=== PATIENT | female | born 1985 | race American Indian/Alaskan Native ===

== ENCOUNTER 2019-06-05 11:51 | Emergency (ER) | payer SELFPAY ==
[2019-06-05 12:59] VITALS: BP 141/98
--- NOTE | 2019-06-05 12:59 | Event Note ---
ED Screening Note Date of service: 06/05/19 Time: 12:56 ED Screening Note: 34 y/o female comes in for a 4 day history of diarrhea. And having epigastric pain times 3 day. having left leg pain that radiates down her leg for 2 weeks. Has taken IB. This initial assessment/diagnostic orders/clinical plan/treatment(s) is/are subject to change based on patients health status, clinical progression and re- assessment by fellow clinical providers in the ED. Further treatment and workup at subsequent clinical providers discretion. Patient/guardian urged not to elope from the ED as their condition may be serious if not clinically assessed and managed. Initial orders include:
[2019-06-05 13:35] LABS: Basophils % (Auto) 0.6 % (0.0-1.8); Eosinophils # (Auto) 0.3 K/mm3 (0.0-0.4); Eosinophils % (Auto) 4.9 % (0.0-4.3); Hematocrit 43.1 % (30.3-42.9); Hemoglobin 14.5 gm/dl (10.1-14.3); Lymphocytes # (Auto) 1.4 K/mm3 (1.2-5.4); Lymphocytes % (Auto) 22.9 % (13.4-35.0); Mean Corpuscular HGB Conc 34 % (30-34); Mean Corpuscular Volume 96 fl (79-97); Monocytes # (Auto) 0.4 K/mm3 (0.0-0.8); Monocytes % (Auto) 6.7 % (0.0-7.3); Platelet Count 164 K/mm3 (140-440); Red Blood Count 4.52 M/mm3 (3.65-5.03)
[2019-06-05 13:55] LABS: Alanine Aminotransferase 29 units/L (7-56); Albumin 4.1 g/dL (3.9-5); BUN/Creatinine Ratio 10; Blood Urea Nitrogen 4 mg/dL (7-17); Calcium 9.3 mg/dL (8.4-10.2); Hemolysis Index 13
[2019-06-05 14:41] LABS: Bilirubin,Urine NEG (Negative); Blood,Urine NEG (Negative); Color,Urine Yellow (Yellow); Mucus,Urine FEW /HPF; Protein,Urine <15 mg/dL mg/dL (Negative); Urobilinogen,Urine < 2.0 mg/dL (<2.0); WBC,Urine < 1.0 /HPF (0.0-6.0)
--- NOTE | 2019-06-05 14:50 | Emergency Department Report ---
ED Abdominal Pain HPI - General Chief Complaint: Abdominal Pain Stated Complaint: STOMACH/(L) LEG PAIN/DIARRHEA Time Seen by Provider: 06/05/19 12:55 Source: patient, family Mode of arrival: Ambulatory Limitations: No Limitations - History of Present Illness Initial Comments: Patient complaining of abdominal pain with diarrhea 3 days. She reports that she ate Duplia and then she started getting sick. She denies any fever or chills. Reports some nausea without any vomiting. Pain is 8/10 and cramping located to upper abdominal quadrants. Denies any urinary burning, frequency or urgency. Denies any back pain. Pain is constant and no medication taken prior to coming to the hospital. She reported that she has a history of gall stones but she does have a history of her gallstone being infected. She also reported that she has been a drinker since she has been H 13 and she started drinking heavily in her 20s. She says she just stopped drinking 2-1/2 weeks ago. Denies any history of liver disease. She is also complaining of left lower extremity pain for weeks. Pain is located at the back of her thigh going down the back of her leg and it comes and goes. MD Complaint: abdominal pain, other (diarrhea) Onset/Timin -: days(s) Location: LUQ, RUQ Radiation: none Migration to: no migration Severity: severe Severity scale (0 -10): 8 Quality: cramping Consistency: constant Improves With: nothing Worsens With: eating Context: other (unknown) Associated Symptoms: nausea, diarrhea. denies: vomiting, fever, chills, constipation, dysuria, hematemesis, hematochezia, melena, hematuria, anorexia, syncope Treatments Prior to Arrival: other (none) - Related Data LMP Date: 05/31/19 Previous Rx's Medication Instructions Recorded Last Taken Type Acetaminophen/Codeine [Tylenol 1 tab PO Q6H PRN #12 tab 06/05/19 Unknown Rx /Codeine # 3 tab] Ondansetron [Zofran ODT TAB] 8 mg PO Q8HR PRN #12 tab.rapdis 06/05/19 Unknown Rx Allergies Allergy/AdvReac Type Severity Reaction Status Date / Time No Known Allergies Allergy Unverified 06/05/19 11:53 ED Review of Systems ROS: Stated complaint: STOMACH/(L) LEG PAIN/DIARRHEA Other details as noted in HPI Constitutional: denies: chills, fever ENT: denies: throat pain, congestion Respiratory: denies: cough, shortness of breath, SOB with exertion, wheezing Cardiovascular: denies: chest pain, palpitations, dyspnea on exertion, edema, syncope Gastrointestinal: abdominal pain, nausea, diarrhea. denies: vomiting, constipation, hematemesis, melena, hematochezia Genitourinary: denies: urgency, dysuria, frequency, hematuria, discharge, abnormal menses, dyspareunia Musculoskeletal: arthralgia. denies: back pain, joint swelling, myalgia Skin: denies: rash Neurological: denies: headache, weakness, numbness, paresthesias, confusion, abnormal gait, vertigo ED Past Medical Hx - Past Medical History Previous Medical History?: Yes Hx Hypertension: Yes Hx Asthma: Yes Additional medical history: Gallstones - Surgical History Past Surgical History?: Yes Additional Surgical History: - Family History Family history: hypertension - Social History Smoking Status: Current Every Day Smoker Substance Use Type: Alcohol (she reports that she quit 2-1/2 weeks ago) - Medications Home Medications: Home Medications Medication Instructions Recorded Confirmed Last Taken Type Acetaminophen/Codeine [Tylenol 1 tab PO Q6H PRN #12 tab 06/05/19 Unknown Rx /Codeine # 3 tab] Ondansetron [Zofran ODT TAB] 8 mg PO Q8HR PRN #12 tab.rapdis 06/05/19 Unknown Rx ED Physical Exam - General Limitations: No Limitations General appearance: alert, in no apparent distress - Head Head exam: Present: atraumatic, normocephalic, normal inspection - Eye Eye exam: Present: normal appearance, PERRL, EOMI Pupils: Present: normal accommodation - ENT ENT exam: Present: normal exam, normal orophraynx, mucous membranes moist - Neck Neck exam: Present: normal inspection, full ROM. Absent: tenderness, lympha denopathy - Respiratory Respiratory exam: Present: normal lung sounds bilaterally. Absent: respiratory distress, chest wall tenderness - Cardiovascular Cardiovascular Exam: Present: regular rate, normal rhythm, normal heart sounds - GI/Abdominal GI/Abdominal exam: Present: soft, tenderness (right upper quadrant and mid upper quadrant), normal bowel sounds. Absent: distended, guarding, rebound, rigid, organomegaly, mass, bruit, pulsatile mass, hernia - Expanded GI/Abdominal Exam Expanded GI/Abdominal exam: Absent: Monzon's sign, ascites - Extremities Exam Extremities exam: Present: normal inspection, full ROM, normal capillary refill, other (no clubbing, cyanosis or edema. +2 pulses in all extremities. No neurovascular compromise except she reported pain with palpation to the back of her thigh.). Absent: tenderness, pedal edema, joint swelling, calf tenderness - Back Exam Back exam: Present: normal inspection, full ROM, other (ambulates without any difficulties). Absent: tenderness, CVA tenderness (R), CVA tenderness (L), muscle spasm, paraspinal tenderness, vertebral tenderness, rash noted - Neurological Exam Neurological exam: Present: alert, oriented X3, normal gait - Psychiatric Psychiatric exam: Present: normal affect, normal mood - Skin Skin exam: Present: warm, dry, intact, normal color. Absent: rash ED Course Vital Signs 06/05/19 12:56 Temperature 98.5 F Pulse Rate 79 Respiratory 18 Rate Blood Pressure 141/98 O2 Sat by Pulse 100 Oximetry - Reevaluation(s) Reevaluation #1: 06/05/19 16:23 She received morphine 4 mg IV, 1 L of normal saline and Zofran 8 mg IV with positive relief of pain. She is able to tolerate some oral fluids. Patient is ambulated in and in no acute distress. Reevaluation #2: 06/05/19 18:36 She remained stable in no acute distress. She is pain-free at present ED Medical Decision Making - Lab Data Result diagrams: 06/05/19 13:17 06/05/19 13:17 Lab Results 06/05/19 06/05/19 06/05/19 Range/Units 13:17 13:17 14:31 WBC 6.1 (4.5-11.0) K/mm3 RBC 4.52 (3.65-5.03) M/mm3 Hgb 14.5 H (10.1-14.3) gm/dl Hct 43.1 H (30.3-42.9) % MCV 96 (79-97) fl MCH 32 (28-32) pg MCHC 34 (30-34) % RDW 14.0 (13.2-15.2) % Plt Count 164 (140-440) K/mm3 Lymph % (Auto) 22.9 (13.4-35.0) % Gates % (Auto) 6.7 (0.0-7.3) % Eos % (Auto) 4.9 H (0.0-4.3) % Baso % (Auto) 0.6 (0.0-1.8) % Lymph # 1.4 (1.2-5.4) K/mm3 Gates # 0.4 (0.0-0.8) K/mm3 Eos # 0.3 (0.0-0.4) K/mm3 Baso # 0.0 (0.0-0.1) K/mm3 Seg Neutrophils % 64.9 (40.0-70.0) % Seg Neutrophils # 4.0 (1.8-7.7) K/mm3 Sodium 141 (137-145) mmol/L Potassium 4.6 (3.6-5.0) mmol/L Chloride 104.2 (98-107) mmol/L Carbon Dioxide 25 (22-30) mmol/L Anion Gap 16 mmol/L BUN 4 L (7-17) mg/dL Creatinine 0.4 L (0.7-1.2) mg/dL Estimated GFR > 60 ml/min BUN/Creatinine Ratio 10 % Glucose 94 (65-100) mg/dL Calcium 9.3 (8.4-10.2) mg/dL Total Bilirubin 0.20 (0.1-1.2) mg/dL AST 20 (5-40) units/L ALT 29 (7-56) units/L Alkaline Phosphatase 55 (35-129) units/L Total Protein 7.2 (6.3-8.2) g/dL Albumin 4.1 (3.9-5) g/dL Albumin/Globulin Ratio 1.3 % Lipase 115 H (13-60) units/L Urine Color Yellow (Yellow) Urine Turbidity Clear (Clear) Urine pH 5.0 (5.0-7.0) Ur Specific [place] 1.016 (1.003-1.030) Urine Protein <15 mg/dl (Negative) mg/dL Urine Glucose (UA) Neg (Negative) mg/dL Urine Ketones Neg (Negative) mg/dL Urine Blood Neg (Negative) Urine Nitrite Neg (Negative) Urine Bilirubin Neg (Negative) Urine Urobilinogen < 2.0 (<2.0) mg/dL Ur Leukocyte Esterase Neg (Negative) Urine WBC (Auto) < 1.0 (0.0-6.0) /HPF Urine RBC (Auto) 1.0 (0.0-6.0) /HPF U Epithel Cells (Auto) 2.0 (0-13.0) /HPF Urine Mucus Few /HPF Urine HCG, Qual Negative (Negative) - Radiology Data Radiology results: report reviewed Venous Doppler left lower extremity and abdominal ultrasound upper dictated by radiologist's report reviewed by myself. Findings [address] [address] Vascular Lab Report Signed Patient: SWETA GARCIA MR#: [id number] : 1985 Acct:[id number] Age/Sex: 34 / F ADM Date: 06/05/19 Loc: ED Attending Dr: Ordering Physician: LONNY CRISOSTOMO Date of Service: 06/05/19 Procedure(s): VL venous duplex LE Accession Number(s): [id number] cc: LONNY CRISOSTOMO DUPLEX DOPPLER LOWER EXTREMITY VEINS, LEFT INDICATION: lower extremity pain without any trauma. TECHNIQUE: Duplex doppler imaging was performed through the veins of the left lower extremity using venous compression and other maneuvers. COMPARISON: None available. FINDINGS: Common Femoral vein: Negative. Superficial Femoral vein: Negative. Popliteal vein: Negative. Calf veins: Negative. Additional findings: None. IMPRESSION: 1. No sonographic evidence for DVT in the left lower extremity. Signer Name: Rudy Blum MD Signed: 06/05/2019 3:58 PM Workstation Name: [id number] Transcribed By: WG Dictated By: Rudy Blum MD Electronically Authenticated By: Rudy Blum MD Signed Date/Time: 06/05/19 155 DD/ 155 TD/TT: Findings [address] [address] Ultrasound Report Signed Patient: SWETA GARCIA MR#: [id number] : 1985 Acct:[id number] Age/Sex: 34 / F ADM Date: 06/05/19 Loc: ED Attending Dr: Ordering Physician: LONNY CRISOSTOMO Date of Service: 06/05/19 Procedure(s): US abdomen limited Accession Number(s): [id number] cc: LONNY CRISOSTOMO US abdomen limited INDICATION / CLINICAL INFORMATION: abdominal pain. COMPARISON: None available. FINDINGS: A single 9 mm stone is demonstrated near the gallbladder fundus. Gallbladder wall appears slightly edematous but measures only 2 mm in thickness. Common duct is normal in size. Liver, spleen, pancreas and kidneys are negative. IMPRESSION: 1. Cholelithiasis. Appearance of the gallbladder wall is suggestive of chronic cholecystitis. Signer Name: Avelino Soto MD Signed: 06/05/2019 3:48 PM Workstation Name: [id number] Transcribed By: TM Dictated By: Avelino Soto MD Electronically Authenticated By: Avelino Soto MD Signed Date/Time: 06/05/19 1548 DD/DT: - Medical Decision Making This is a 34-year-old female here for upper quadrant pain for 3 days after eating Duplia. She has a history of gallstones without any gallbladder infection in the past. Abdominal exam with tenderness to right upper and mid quadrant with negative Monzon sign. Patient is stable and not having any pain at present. CBC stable, lipase 1:15 which is elevated, urinalysis is negative for negative tests. I discussed this case with Dr. Brody Brownlee and she reports the patient can be discharged home to follow-up with primary care and surgeon. She is educated on lab report and ultrasound report. Doppler ultrasound of lower extremity negative and abdominal ultrasound upper quadrant with findings for gallstone Patient given pain medication, IV fluid and nausea medication in emergency room and her vital signs are stable she is afebrile and discharged home in stable condition and voices understanding the discharge injection, diagnosis and medication. Discharged home with her family in stable condition with prescription for Tylenol No. 3, Zofran. He is aware that she needs to stay away from fatty food and avoid alcohol and its if her condition worsens she needs to return to the emergency room FISH. - Differential Diagnosis gallbladder/spleen disease, liver disease, gastroenteritis, UTI Critical care attestation.: If time is entered above; I have spent that time in minutes in the direct care of this critically ill patient, excluding procedure time. ED Disposition Clinical Impression: Gall stones, Biliary colic symptom, Elevated lipase, Pain in left lower leg Abdominal pain Qualifiers: Abdominal location: right upper quadrant Qualified Code(s): R10.11 - Right upper quadrant pain Disposition: - TO HOME OR SELFCARE Is pt being admited?: No Does the pt Need Aspirin: No Condition: Stable Instructions: Abdominal Pain (ED), Biliary Colic (ED), Cholecystitis (ED), Acute Nausea and Vomiting (ED), Acute Diarrhea (ED), Arthralgia (ED) Additional Instructions: Please follow up with primary care physician and if he do not have a primary care physician [facility]-up at [facility] in 2-3 days Follow-up with doctor, who is general surgeon regarding gallbladder in 2-3 days Take medication as prescribed I will avoid fatty foods and ensure that he drink plenty of water Take Tylenol 3 for pain but please do not drive or operate heavy machinery while taking this medication as it causes drowsiness If your pain worsens, increased nausea vomiting or diarrhea, fever and/or chills, weakness, dizziness, increased heart rate, please return to emergency room FISH Referrals: SEEMA COLE MD [Primary Care Provider] - 2-3 Days JOVANY XIAO MD [Staff Physician] - 06/07/19 Forms: Work/School Release Form(ED), Accompanied Note
[2019-06-05] MEDS ORDERED: ZOFRAN IV ONE (14:53)
[2019-06-05] MEDS ORDERED: MORPHINE IV ONE (14:53)
[2019-06-05] MEDS ORDERED: NACL 0.9% 1000 ML 1,000 ML IV ONE (14:53)
[2019-06-05 14:55] LABS: HCG Qualitative,Urine Negative (Negative)
--- NOTE | 2019-06-05 15:52 | Ultrasound Report ---
US abdomen limited INDICATION / CLINICAL INFORMATION: abdominal pain. COMPARISON: None available. FINDINGS: A single 9 mm stone is demonstrated near the gallbladder fundus. Gallbladder wall appears slightly ed ematous but measures only 2 mm in thickness. Common duct is normal in size. Liver, spleen, pancreas a nd kidneys are negative. IMPRESSION: 1. Cholelithiasis. Appearance of the gallbladder wall is suggestive of chronic cholecystitis. Signer Name: Avelino Soto MD Signed: 06/05/2019 3:48 PM Workstation Name: [id number]
--- NOTE | 2019-06-05 16:03 | Vascular Lab Report ---
DUPLEX DOPPLER LOWER EXTREMITY VEINS, LEFT INDICATION: lower extremity pain without any trauma. TECHNIQUE: Duplex doppler imaging was performed through the veins of the left lower extremity using venous compr ession and other maneuvers. COMPARISON: None available. FINDINGS: Common Femoral vein: Negative. Superficial Femoral vein: Negative. Popliteal vein: Negative. Calf veins: Negative. Additional findings: None. IMPRESSION: 1. No sonographic evidence for DVT in the left lower extremity. Signer Name: Rudy Blum MD Signed: 06/05/2019 3:58 PM Workstation Name: [email or web address]
== END 2019-06-05 18:50 | disposition home or self-care (01) ==
LOC: ED 11:51
DX: K80.80 Other cholelithiasis without obstruction (principal); I10 Essential (primary) hypertension; J45.909 Unspecified asthma, uncomplicated; F17.200 Nicotine dependence, unspecified, uncomplicated
CPT/HCPCS: 36415; 76705; 80053; 81001; 81025; 83690; 85025; 93971; 96361; 96374; 96375; 99284; J2270; J2405; J7030

== ENCOUNTER 2020-02-21 08:06 | Emergency (ER) | payer SELFPAY ==
[2020-02-21] MEDS ORDERED: methylPREDNISolone Sod Succinate 125 MG/2 ML INJ IM ONE (08:32)
[2020-02-21] MEDS ORDERED: traMADol 50 MG TAB PO ONE (08:32)
--- NOTE | 2020-02-21 08:34 | Emergency Department Report ---
ED General Adult HPI - General Chief complaint: Back Pain/Injury Stated complaint: LEG PAIN/BLOOD IN STOOL Time Seen by Provider: 02/21/20 08:21 Source: patient Mode of arrival: Ambulatory Limitations: No Limitations - History of Present Illness Initial comments: Patient presents to the emergency department the chief complaint left-sided back pain that started about 1 week ago that is radiating into her left leg. Patient states the pain is sharp in nature and feels like electrical impulses. She states within the last couple of days she is also having pain along the right side of her back is radiating into her right leg as well. Patient describes some numbness and tingling in the right leg as well. Patient denies any recent trauma or injury to her lower back. Patient states she does not remember any traumatic experience within the last 5 years as well. Patient states that she has had some bright blood in her stool recently but denies abdominal pain. Patient states she has full control of her bladder and bowel. Patient also denies paresthesias of the perineum - Related Data Previous Rx's Medication Instructions Recorded Last Taken Type Acetaminophen/Codeine [Tylenol 1 tab PO Q6H PRN #12 tab 06/05/19 Unknown Rx /Codeine # 3 tab] Ondansetron [Zofran ODT TAB] 8 mg PO Q8HR PRN #12 tab.rapdis 06/05/19 Unknown Rx Potassium Chloride 10 meq PO DAILY #5 tablet.er 02/21/20 Unknown Rx predniSONE [Deltasone] 20 mg PO DAILY #15 tablet 02/21/20 Unknown Rx traMADoL [Ultram] 50 mg PO Q6HR PRN #24 tablet 02/21/20 Unknown Rx Allergies Allergy/AdvReac Type Severity Reaction Status Date / Time No Known Allergies Allergy Verified 02/21/20 10:50 ED Review of Systems ROS: Stated complaint: LEG PAIN/BLOOD IN STOOL Other details as noted in HPI Comment: All other systems reviewed and negative Constitutional: denies: chills, fever Eyes: denies: eye pain, eye discharge, vision change ENT: denies: ear pain, throat pain Respiratory: denies: cough, shortness of breath, wheezing Cardiovascular: denies: chest pain, palpitations Endocrine: no symptoms reported Gastrointestinal: denies: abdominal pain, nausea, diarrhea Genitourinary: denies: urgency, dysuria, discharge Musculoskeletal: back pain. denies: joint swelling, arthralgia Skin: denies: rash, lesions Neurological: denies: headache, weakness, paresthesias Psychiatric: denies: anxiety, depression Hematological/Lymphatic: denies: easy bleeding, easy bruising ED Past Medical Hx - Past Medical History Previous Medical History?: Yes Hx Hypertension: Yes Hx Asthma: Yes Additional medical history: Gallstones - Surgical History Past Surgical History?: Yes Additional Surgical History: - Social History Smoking Status: Current Every Day Smoker Substance Use Type: Alcohol - Medications Home Medications: Home Medications Medication Instructions Recorded Confirmed Last Taken Type Acetaminophen/Codeine [Tylenol 1 tab PO Q6H PRN #12 tab 06/05/19 Unknown Rx /Codeine # 3 tab] Ondansetron [Zofran ODT TAB] 8 mg PO Q8HR PRN #12 tab.rapdis 06/05/19 Unknown Rx Potassium Chloride 10 meq PO DAILY #5 tablet.er 02/21/20 Unknown Rx predniSONE [Deltasone] 20 mg PO DAILY #15 tablet 02/21/20 Unknown Rx traMADoL [Ultram] 50 mg PO Q6HR PRN #24 tablet 02/21/20 Unknown Rx ED Physical Exam - General Limitations: No Limitations General appearance: alert, in no apparent distress - Head Head exam: Present: atraumatic, normocephalic - Eye Eye exam: Present: normal appearance, PERRL, EOMI - ENT ENT exam: Present: mucous membranes moist - Neck Neck exam: Present: normal inspection - Respiratory Respiratory exam: Present: normal lung sounds bilaterally. Absent: respiratory distress - Cardiovascular Cardiovascular Exam: Present: regular rate, normal rhythm. Absent: systolic murmur, diastolic murmur, rubs, gallop - GI/Abdominal GI/Abdominal exam: Present: soft, normal bowel sounds. Absent: distended, tenderness - Rectal Rectal exam: Present: deferred, other (patient politely declined ) - Extremities Exam Extremities exam: Present: normal inspection - Back Exam Back exam: Present: normal inspection - Neurological Exam Neurological exam: Present: alert, oriented X3, CN II-XII intact, other (Positive straight leg raise bilaterally). Absent: motor sensory deficit - Psychiatric Psychiatric exam: Present: normal affect, normal mood - Skin Skin exam: Present: warm, dry, intact, normal color. Absent: rash ED Course Vital Signs 02/21/20 02/21/20 02/21/20 08:10 08:48 08:49 Temperature 9.5 F L 98.1 F Pulse Rate 99 H 85 Respiratory 16 18 Rate Blood Pressure 129/95 133/98 O2 Sat by Pulse 98 99 Oximetry 02/21/20 02/21/20 09:00 10:00 Temperature Pulse Rate Respiratory Rate Blood Pressure 135/95 130/91 O2 Sat by Pulse Oximetry ED Medical Decision Making - Lab Data Result diagrams: 02/21/20 09:38 02/21/20 10:00 - Radiology Data Radiology results: report reviewed - Medical Decision Making Potassium replaced discussed CT results with patient discussed with patient the need to follow up with PCP/GI for blood in stool for further evaluation Critical care attestation.: If time is entered above; I have spent that time in minutes in the direct care of this critically ill patient, excluding procedure time. ED Disposition Clinical Impression: Hypokalemia, Lumbar radiculopathy, acute, Bulging disc, Rectal bleed Disposition: TO HOME OR SELFCARE Is pt being admited?: No Does the pt Need Aspirin: No Condition: Stable Instructions: Hypokalemia (ED), Lumbar Radiculopathy (ED), Rectal Bleeding (ED) Additional Instructions: return if worse Prescriptions: predniSONE [Deltasone] 20 mg PO DAILY #15 tablet Potassium Chloride 10 meq PO DAILY #5 tablet.er traMADoL [Ultram] 50 mg PO Q6HR PRN #24 tablet PRN Reason: Pain Referrals: [facility] MD RANULFO [Primary Care Provider] - 3-5 Days [facility] [Provider Group] - 3-5 Days [facility] [Provider Group] - 3-5 Days [facility] [Outside] - 3-5 Days [facility] [Provider Group] - 3-5 Days ANIL JONES MD [Staff Physician] - 3-5 Days [facility] [Provider Group] - 3-5 Days Time of Disposition: 12:09
[2020-02-21 09:42] LABS: Basophils # (Auto) 0.1 K/mm3 (0.0-0.1); Basophils % (Auto) 1.4 % (0.0-1.8); Eosinophils # (Auto) 0.1 K/mm3 (0.0-0.4); Eosinophils % (Auto) 2.1 % (0.0-4.3); Hematocrit 39.9 % (30.3-42.9); Hemoglobin 13.7 gm/dl (10.1-14.3); Lymphocytes # (Auto) 1.5 K/mm3 (1.2-5.4); Lymphocytes % (Auto) 31.6 % (13.4-35.0); Mean Corpuscular HGB Conc 34 % (30-34); Mean Corpuscular Volume 92 fl (79-97); Monocytes # (Auto) 0.7 K/mm3 (0.0-0.8); Platelet Count 214 K/mm3 (140-440); Red Blood Count 4.32 M/mm3 (3.65-5.03); Red Cell Distribution Width 16.2 % (13.2-15.2)
[2020-02-21 10:02] LABS: Alanine Aminotransferase 58 units/L (7-56); Albumin 3.6 g/dL (3.9-5); BUN/Creatinine Ratio 5; Blood Urea Nitrogen 2 mg/dL (7-17); Hemolysis Index 12
[2020-02-21 10:12] VITALS: BP 130/91
[2020-02-21 10:26] LABS: HCG Qualitative,Urine Negative (Negative)
[2020-02-21 10:30] LABS: Bacteria,Urine 1+ /HPF (Negative); Bilirubin,Urine NEG (Negative); Blood,Urine SM (Negative); Color,Urine Yellow (Yellow); Mucus,Urine FEW /HPF; Protein,Urine <15 mg/dL mg/dL (Negative); Urobilinogen,Urine < 2.0 mg/dL (<2.0)
[2020-02-21 10:36] LABS: Alanine Aminotransferase 62 units/L (7-56); BUN/Creatinine Ratio 5; Blood Urea Nitrogen 2 mg/dL (7-17); Calcium 8.2 mg/dL (8.4-10.2); Hemolysis Index 7
[2020-02-21] MEDS ORDERED: POTASSIUM CHLORIDE ER 20 MEQ TAB PO ONE (10:49)
[2020-02-21] MEDS ORDERED: MAGNESIUM SULFATE 1 GM in SODIUM CHLORIDE 0.9% 50 ML IV ONE (11:30)
--- NOTE | 2020-02-21 11:38 | Cat Scan Report ---
CT LUMBAR SPINE WITHOUT CONTRAST INDICATION: Bilateral lower extremity radiculopathy after fall. TECHNIQUE: Axial imaging performed through the lumbar spine without the use of contrast. Sagittal a nd coronal reconstructed images were also reviewed. All CT scans at this location are performed usin g CT dose reduction for ALARA by means of automated exposure control. COMPARISON: None FINDINGS: Alignment: Spinal alignment is normal. Bones: There is no acute osseous abnormality. No significant degenerative disc disease or facet art hropathy. Soft tissues: Although intraspinal contents can be obscured on CT, mild diffuse posterior bulging di scs are suspected at L4-5 and L5-S1. No high-grade central canal stenosis is suggested. IMPRESSION: No acute osseous injury or malalignment. Mild diffuse bulging discs are suspected at L4- 5 and L5-S1. If further evaluation is needed, MRI lumbar spine without contrast is recommended. Signer Name: Mt Duval Jr, MD Signed: 02/21/2020 11:33 AM Workstation Name: [id number]
== END 2020-02-21 12:54 | disposition home or self-care (01) ==
LOC: ED 08:06
DX: E87.6 Hypokalemia (principal); M54.16 Radiculopathy, lumbar region; M51.27 Other intervertebral disc displacement, lumbosacral region; K62.5 Hemorrhage of anus and rectum; I10 Essential (primary) hypertension; J45.909 Unspecified asthma, uncomplicated; K80.80 Other cholelithiasis without obstruction; F17.200 Nicotine dependence, unspecified, uncomplicated; Z98.890 Other specified postprocedural states; Z79.899 Other long term (current) drug therapy
CPT/HCPCS: 36415; 72131; 80053; 81001; 81025; 83735; 84703; 85025; 87086; 96365; 96372; 99284; J2930; J3475

== ENCOUNTER 2021-05-30 10:23 | Emergency (ER) | payer OTHER ==
[2021-05-30 10:48] VITALS: BP 119/89
[2021-05-30 11:32] LABS: Bacteria,Urine 1+ /HPF (Negative); Bilirubin,Urine MOD (Negative); Blood,Urine MOD (Negative); Color,Urine Amber (Yellow); Hyaline Casts,Urine 12 /LPF; Mucus,Urine 3+ /HPF
[2021-05-30 11:41] LABS: Protein,Urine >500 mg/dL (Negative)
[2021-05-30 11:42] LABS: HCG Qualitative,Urine Negative (Negative)
[2021-05-30 11:45] LABS: Ictotest,Urine Negative (Negative)
--- NOTE | 2021-05-30 12:57 | Emergency Department Report ---
ED General Adult HPI - General Chief complaint: Upper Respiratory Infection Stated complaint: SICK/LT LOWER SIDE PAIN Time Seen by Provider: 05/30/21 12:44 Source: patient Mode of arrival: Ambulatory Limitations: No Limitations - History of Present Illness Initial comments: Patient is a 36 female who presents emergency room with complaints of "not feeli ng well" for 3 to 4 days. She has associated cough, congestion, nausea, vomiting, diarrhea. He states that she has approximately 1-2 episodes of vomiting a day. She has not been vaccinated for COVID-19. She has not been tested for COVID-19 since becoming sick. She states that she is also been having some left lower back pain and some darker urine. She denies any fever, body aches, chills, abdominal pain, dysuria, shortness of breath, chest pain, abnormal vaginal discharge. Has medical history of hypertension, hyperlipidemia, asthma. No allergies to medications. Last menstrual cycle mi ddle of April. - Related Data Previous Rx's Medication Instructions Recorded Last Taken Type Acetaminophen/Codeine [Tylenol 1 tab PO Q6H PRN #12 tab 06/05/19 Unknown Rx /Codeine # 3 tab] Ondansetron [Zofran ODT TAB] 8 mg PO Q8HR PRN #12 tab.rapdis 06/05/19 Unknown Rx Potassium Chloride 10 meq PO DAILY #5 tablet.er 02/21/20 Unknown Rx predniSONE [Deltasone] 20 mg PO DAILY #15 tablet 02/21/20 Unknown Rx traMADoL [Ultram] 50 mg PO Q6HR PRN #24 tablet 02/21/20 Unknown Rx Naproxen [Naprosyn TAB] 500 mg PO BID 10 Days tablet 04/09/20 Unknown Rx methOCARBAMOL [Robaxin TAB] 500 mg PO Q6H 5 Days tablet 04/09/20 Unknown Rx methylPREDNISolone [Medrol 4MG 4 mg PO ONCE #1 tab.ds.pk 04/09/20 Unknown Rx DOSEPAK (21 tabs)] Nitrofurantoin [place]/M-Cryst 100 mg PO Q12HR 10 Days #20 capsule 04/29/20 Unknown Rx [Macrobid CAP] Benzonatate [Tessalon Perles] 100 mg PO Q8HR PRN #12 capsule 05/30/21 Unknown Rx Ondansetron [Zofran Odt] 4 mg PO Q8HR PRN #12 tab.rapdis 05/30/21 Unknown Rx cephALEXin [Keflex] 500 mg PO BID 7 Days #14 cap 05/30/21 Unknown Rx guaiFENesin/DEXTROMETHORPHAN 1 each PO Q6HR PRN #20 capsule 05/30/21 Unknown Rx [Coricidin Hbp Chest Jimy-Cough] Allergies Allergy/AdvReac Type Severity Reaction Status Date / Time No Known Allergies Allergy Verified 05/30/21 10:42 ED Review of Systems ROS: Stated complaint: SICK/LT LOWER SIDE PAIN Other details as noted in HPI Comment: All other systems reviewed and negative ED Past Medical Hx - Past Medical History Hx Hypertension: Yes Hx Asthma: Yes Additional medical history: Gallstones - Surgical History Additional Surgical History: - Social History Smoking Status: Current Every Day Smoker Substance Use Type: Alcohol - Medications Home Medications: Home Medications Medication Instructions Recorded Confirmed Last Taken Type Acetaminophen/Codeine [Tylenol 1 tab PO Q6H PRN #12 tab 06/05/19 Unknown Rx /Codeine # 3 tab] Ondansetron [Zofran ODT TAB] 8 mg PO Q8HR PRN #12 tab.rapdis 06/05/19 Unknown Rx Potassium Chloride 10 meq PO DAILY #5 tablet.er 02/21/20 Unknown Rx predniSONE [Deltasone] 20 mg PO DAILY #15 tablet 02/21/20 Unknown Rx traMADoL [Ultram] 50 mg PO Q6HR PRN #24 tablet 02/21/20 Unknown Rx Naproxen [Naprosyn TAB] 500 mg PO BID 10 Days tablet 04/09/20 Unknown Rx methOCARBAMOL [Robaxin TAB] 500 mg PO Q6H 5 Days tablet 04/09/20 Unknown Rx methylPREDNISolone [Medrol 4MG 4 mg PO ONCE #1 tab.ds.pk 04/09/20 Unknown Rx DOSEPAK (21 tabs)] Nitrofurantoin [place]/M-Cryst 100 mg PO Q12HR 10 Days #20 capsule 04/29/20 Unk nown Rx [Macrobid CAP] Benzonatate [Tessalon Perles] 100 mg PO Q8HR PRN #12 capsule 05/30/21 Unknown Rx Ondansetron [Zofran Odt] 4 mg PO Q8HR PRN #12 tab.rapdis 05/30/21 Unknown Rx cephALEXin [Keflex] 500 mg PO BID 7 Days #14 cap 05/30/21 Unknown Rx guaiFENesin/DEXTROMETHORPHAN 1 each PO Q6HR PRN #20 capsule 05/30/21 Unknown Rx [Coricidin Hbp Chest Jimy-Cough] ED Physical Exam - General Limitations: No Limitations General appearance: alert, in no apparent distress - Head Head exam: Present: atraumatic, normocephalic - Eye Eye exam: Present: normal appearance - ENT ENT exam: Present: mucous membranes moist - Respiratory Respiratory exam: Present: normal lung sounds bilaterally. Absent: respiratory distress, wheezes, rales, rhonchi, stridor, chest wall tenderness, accessory muscle use, decreased breath sounds, prolonged expiratory - Cardiovascular Cardiovascular Exam: Present: regular rate, normal rhythm, normal heart sounds. Absent: systolic murmur, diastolic murmur, rubs, gallop - GI/Abdominal GI/Abdominal exam: Present: soft, normal bowel sounds. Absent: distended, tenderness, guarding, rebound, rigid - Back Exam Back exam: Present: normal inspection, full ROM. Absent: CVA tenderness (R), CVA tenderness (L), paraspinal tenderness, vertebral tenderness - Neurological Exam Neurological exam: Present: alert, oriented X3 - Psychiatric Psychiatric exam: Present: normal affect, normal mood - Skin Skin exam: Present: warm, dry, intact ED Course Vital Signs 05/30/21 10:46 Temperature 98.4 F Pulse Rate 95 H Respiratory 18 Rate Blood Pressure 119/89 O2 Sat by Pulse 98 Oximetry ED Medical Decision Making - Medical Decision Making Patient is a 36 female who presents emergency room with complaints of "not feeling well" for 3 to 4 days. She has associated cough, congestion, nausea, vomiting, diarrhea. He states that she has approximately 1-2 episodes of vomiting a day. She has not been vaccinated for COVID-19. She has not been tested for COVID-19 since becoming sick. She states that she is also been having some left lower back pain and some darker urine. She denies any fever, body aches, chills, abdominal pain, dysuria, shortness of breath, chest pain, abnormal vaginal discharge. Has medical history of hypertension, hyperlipidemia, asthma. No allergies to medications. Last menstrual cycle middle of April. Vitals are normal. No abnormality on physical examination as documented in chart. UA shows evidence of UTI. Breath sounds are clear bilaterally, no wheezing, no rales, no rhonchi. ambulating oxygen saturation performed by me for 2 minutes and patient maintained 98% or higher on room air. Symptoms likely related to UTI and viral upper respiratory infection. Given that patient is presenting during a COVID-19 pandemic, discussed the possibility of COVID-19 with patient, discussed return precautions, discussed outpatient testing and to self quarantine as necessary. advised pt please take medication as prescribed. Increase your fluid intake over the next several days. Follow-up with your primary care doctor for reexamination and to have your urine retested for clearance of bacteria. Recommend for you to get outpatient COVID-19 testing and quarantine as necessary, if positive you will need to quarantine for 10 days from the onset of your symptoms. Return to emergency room immediately for any new or worsening symptoms including but not limited to shortness of breath, severe chest pain, continued vomiting, unable to tolerate by mouth intake, etc. Critical care attestation.: If time is entered above; I have spent that time in minutes in the direct care of this critically ill patient, excluding procedure time. ED Disposition Clinical Impression: URI (upper respiratory infection) Qualifiers: URI type: unspecified URI Qualified Code(s): J06.9 - Acute upper respiratory infection, unspecified UTI (urinary tract infection) Qualifiers: Urinary tract infection type: acute cystitis Hematuria presence: with hematuria Qualified Code(s): N30.01 - Acute cystitis with hematuria Disposition: HOME / SELF CARE / HOMELESS Is pt being admited?: No Does the pt Need Aspirin: No Condition: Stable Instructions: Urinary Tract Infection, Adult, Viral Respiratory Infection Additional Instructions: please take medication as prescribed. Increase your fluid intake over the next several days. Follow-up with your primary care doctor for reexamination and to have your urine retested for clearance of bacteria. Recommend for you to get outpatient COVID-19 testing and quarantine as necessary, if positive you will need to quarantine for 10 days from the onset of your symptoms. Return to emergency room immediately for any new or worsening symptoms including but not limited to shortness of breath, severe chest pain, continued vomiting, unable to tolerate by mouth intake, etc. Prescriptions: guaiFENesin/DEXTROMETHORPHAN [Coricidin Hbp Chest Jimy-Cough] 1 each PO Q6HR PRN #20 capsule PRN Reason: cough/congestion cephALEXin [Keflex] 500 mg PO BID 7 Days #14 cap Benzonatate [Tessalon Perles] 100 mg PO Q8HR PRN #12 capsule PRN Reason: cough Ondansetron [Zofran Odt] 4 mg PO Q8HR PRN #12 tab.rapdis PRN Reason: nausea/vomiting Referrals: LYNDSAY POOL MD [Staff Physician] - 3-5 Days [facility] [Provider Group] - 3-5 Days JEFF BARBER MD [Staff Physician] - 3-5 Days Time of Disposition: 12:55 Print Language: YAKUT
== END 2021-05-30 13:20 | disposition home or self-care (01) ==
LOC: ED 10:23
DX: N39.0 Urinary tract infection, site not specified (principal); J06.9 Acute upper respiratory infection, unspecified; I10 Essential (primary) hypertension; J45.909 Unspecified asthma, uncomplicated; F17.200 Nicotine dependence, unspecified, uncomplicated; Z79.899 Other long term (current) drug therapy; Z98.890 Other specified postprocedural states
CPT/HCPCS: 81001; 81025; 87086

== ENCOUNTER 2021-07-10 12:18 | Emergency (ER) | payer BC ==
[2021-07-10] MEDS ORDERED: ONDANSETRON 4 MG/2 ML INJ IV ONE (15:35)
[2021-07-10] MEDS ORDERED: SODIUM CHLORIDE 0.9% 1000 ML 1,000 ML IV ONE (15:35)
[2021-07-10] MEDS ORDERED: MORPHINE 4 MG/1 ML INJ IV ONE (15:35)
[2021-07-10 15:53] LABS: Basophils # (Auto) 0.1 K/mm3 (0.0-0.1); Basophils % (Auto) 0.7 % (0.0-1.8); Eosinophils % (Auto) 0.4 % (0.0-4.3); Hematocrit 42.7 % (30.3-42.9); Hemoglobin 14.3 gm/dl (10.1-14.3); Lymphocytes # (Auto) 1.6 K/mm3 (1.2-5.4); Lymphocytes % (Auto) 19.4 % (13.4-35.0); Mean Corpuscular HGB Conc 34 % (30-34); Mean Corpuscular Volume 95 fl (79-97); Monocytes # (Auto) 0.6 K/mm3 (0.0-0.8); Monocytes % (Auto) 7.2 % (0.0-7.3); Platelet Count 162 K/mm3 (140-440); Red Blood Count 4.49 M/mm3 (3.65-5.03); Red Cell Distribution Width 19.5 % (13.2-15.2)
[2021-07-10 16:17] LABS: Alanine Aminotransferase 45 units/L (7-56); Albumin 4.3 g/dL (3.9-5); Blood Urea Nitrogen 6 mg/dL (7-17); Calcium 9.7 mg/dL (8.4-10.2); Hemolysis Index 3
[2021-07-10 16:19] LABS: BUN/Creatinine Ratio 15
[2021-07-10] MEDS ORDERED: POTASSIUM CHLORIDE ER 20 MEQ TAB PO ONE (16:23)
--- NOTE | 2021-07-10 16:32 | Emergency Department Report ---
ED General Adult HPI - General Chief complaint: Abdominal Pain Stated complaint: ANUL BLEEDING/ABD PAIN Time Seen by Provider: 07/10/21 15:13 Source: patient Mode of arrival: Ambulatory Limitations: No Limitations - History of Present Illness Initial comments: Patient is a 36-year-old female presents emergency room complaints of blood in her stool that began 4 days ago. She states that that she only notices the blood whenever she has a bowel movement. She states that she feels like she has hemorrhoids and has a lump present. She states that it is bright red blood in her stool. She states that she has had this once in the past approximately 2 y ears ago but did not follow-up with anyone, she has never seen a GI doctor or had a colonoscopy. Patient states that she is also been having right upper quadrant abdominal pain for 4 days. She also has associated nausea and vomiting. She denies any fever, melena, hematemesis, urinary symptoms. Past medical history of hypertension, asthma, hyperlipidemia. No allergies to medications. Last menstrual cycle 06/19/2021. She has a past abdominal surgical history of a . She is a current everyday drinker. She is a current tobacco user and smokes half a pack a day. Severity scale (0 -10): 9 - Related Data Previous Rx's Medication Instructions Recorded Last Taken Type Acetaminophen/Codeine [Tylenol 1 tab PO Q6H PRN #12 tab 06/05/19 Unknown Rx /Codeine # 3 tab] Ondansetron [Zofran ODT TAB] 8 mg PO Q8HR PRN #12 tab.rapdis 06/05/19 Unknown Rx Potassium Chloride 10 meq PO DAILY #5 tablet.er 02/21/20 Unknown Rx predniSONE [Deltasone] 20 mg PO DAILY #15 tablet 02/21/20 Unknown Rx traMADoL [Ultram] 50 mg PO Q6HR PRN #24 tablet 02/21/20 Unknown Rx Naproxen [Naprosyn TAB] 500 mg PO BID 10 Days tablet 04/09/20 Unknown Rx methOCARBAMOL [Robaxin TAB] 500 mg PO Q6H 5 Days tablet 04/09/20 Unknown Rx methylPREDNISolone [Medrol 4MG 4 mg PO ONCE #1 tab.ds.pk 04/09/20 Unknown Rx DOSEPAK (21 tabs)] Nitrofurantoin [place]/M-Cryst 100 mg PO Q12HR 10 Days #20 capsule 04/29/20 Unknown Rx [Macrobid CAP] Benzonatate [Tessalon Perles] 100 mg PO Q8HR PRN #12 capsule 05/30/21 Unknown Rx Ondansetron [Zofran Odt] 4 mg PO Q8HR PRN #12 tab.rapdis 05/30/21 Unknown Rx cephALEXin [Keflex] 500 mg PO BID 7 Days #14 cap 05/30/21 Unknown Rx guaiFENesin/DEXTROMETHORPHAN 1 each PO Q6HR PRN #20 capsule 05/30/21 Unknown Rx [Coricidin Hbp Chest Jimy-Cough] Hydrocortisone [Anucort-HC SUPPOS] 25 mg RC BID #12 supp.rect 07/10/21 Unknown Rx Ondansetron [Zofran Odt] 4 mg PO Q8HR PRN #12 tab.rapdis 07/10/21 Unknown Rx cephALEXin [Keflex] 500 mg PO BID 7 Days #14 cap 07/10/21 Unknown Rx traMADoL [Ultram 50 MG tab] 50 mg PO Q6HR PRN #10 tablet 07/10/21 Unknown Rx Allergies Allergy/AdvReac Type Severity Reaction Status Date / Time No Known Allergies Allergy Verified 07/10/21 12:28 ED Review of Systems ROS: Stated complaint: ANUL BLEEDING/ABD PAIN Other details as noted in HPI Comment: All other systems reviewed and negative ED Past Medical Hx - Past Medical History Hx Hypertension: Yes Hx Asthma: Yes Additional medical history: Gallstones - Surgical History Additional Surgical History: - Social History Smoking Status: Current Every Day Smoker Substance Use Type: Alcohol - Medications Home Medications: Home Medications Medication Instructions Recorded Confirmed Last Taken Type Acetaminophen/Codeine [Tylenol 1 tab PO Q6H PRN #12 tab 06/05/19 Unknown Rx /Codeine # 3 tab] Ondansetron [Zofran ODT TAB] 8 mg PO Q8HR PRN #12 tab.rapdis 06/05/19 Unknown Rx Potassium Chloride 10 meq PO DAILY #5 tablet.er 02/21/20 Unknown Rx predniSONE [Deltasone] 20 mg PO DAILY #15 tablet 02/21/20 Unknown Rx traMADoL [Ultram] 50 mg PO Q6HR PRN #24 tablet 02/21/20 Unknown Rx Naproxen [Naprosyn TAB] 500 mg PO BID 10 Days tablet 04/09/20 Unknown Rx methOCARBAMOL [Robaxin TAB] 500 mg PO Q6H 5 Days tablet 04/09/20 Unknown Rx methylPREDNISolone [Medrol 4MG 4 mg PO ONCE #1 tab.ds.pk 04/09/20 Unknown Rx DOSEPAK (21 tabs)] Nitrofurantoin [place]/M-Cryst 100 mg PO Q12HR 10 Days #20 capsule 04/29/20 Unknown Rx [Macrobid CAP] Benzonatate [Tessalon Perles] 100 mg PO Q8HR PRN #12 capsule 05/30/21 Unknown Rx Ondansetron [Zofran Odt] 4 mg PO Q8HR PRN #12 tab.rapdis 05/30/21 Unknown Rx cephALEXin [Keflex] 500 mg PO BID 7 Days #14 cap 05/30/21 Unknown Rx guaiFENesin/DEXTROMETHORPHAN 1 each PO Q6HR PRN #20 capsule 05/30/21 Unknown Rx [Coricidin Hbp Chest Jimy-Cough] Hydrocortisone [Anucort-HC SUPPOS] 25 mg RC BID #12 supp.rect 07/10/21 Unknown Rx Ondansetron [Zofran Odt] 4 mg PO Q8HR PRN #12 tab.rapdis 07/10/21 Unknown Rx cephALEXin [Keflex] 500 mg PO BID 7 Days #14 cap 07/10/21 Unknown Rx traMADoL [Ultram 50 MG tab] 50 mg PO Q6HR PRN #10 tablet 07/10/21 Unknown Rx ED Physical Exam - General Limitations: No Limitations General appearance: alert, in no apparent distress - Head Head exam: Present: atraumatic, normocephalic - Eye Eye exam: Present: normal appearance - ENT ENT exam: Present: mucous membranes moist - Respiratory Respiratory exam: Present: normal lung sounds bilaterally. Absent: respiratory distress, wheezes, rales, rhonchi, stridor, chest wall tenderness, accessory muscle use, decreased breath sounds, prolonged expiratory - Cardiovascular Cardiovascular Exam: Present: normal rhythm, tachycardia, normal heart sounds. Absent: systolic murmur, diastolic murmur, rubs, gallop - GI/Abdominal GI/Abdominal exam: Present: soft, tenderness (RUQ), normal bowel sounds. Absent: distended, guarding, rebound, rigid - Rectal Rectal exam: Present: other (dietetic assistant: lisbet, LACE WEAVER, there is a 1 cm nonthrombosed external hemorrhoid, there is brown stool with small specks of bright red blood, no melena, able to reduce hemorrhoid, hemocult performed and is positive ) - Neurological Exam Neurological exam: Present: alert, oriented X3 - Psychiatric Psychiatric exam: Present: normal affect, normal mood - Skin Skin exam: Present: warm, dry, intact ED Course Vital Signs 07/10/21 07/10/21 07/10/21 12:28 17:23 17:31 Temperature 98.9 F Pulse Rate 114 H 88 Respiratory 18 11 L 11 L Rate Blood Pressure 146/95 Blood Pressure 129/96 [Right] O2 Sat by Pulse 99 100 98 Oximetry 07/10/21 07/10/21 07/10/21 17:45 18:01 18:15 Temperature Pulse Rate 90 93 H 86 Respiratory 13 12 12 Rate Blood Pressure 146/95 141/101 141/101 Blood Pressure [Right] O2 Sat by Pulse 100 100 100 Oximetry 07/10/21 07/10/21 18:31 20:11 Temperature Pulse Rate 82 83 Respiratory 11 L 18 Rate Blood Pressure 149/109 Blood Pressure 138/97 [Right] O2 Sat by Pulse 100 Oximetry ED Medical Decision Making - Lab Data Result diagrams: 07/10/21 15:38 07/10/21 18:59 Lab Results 07/10/21 07/10/21 07/10/21 Range/Units 15:38 15:38 15:38 WBC 8.4 (4.5-11.0) K/mm3 RBC 4.49 (3.65-5.03) M/mm3 Hgb 14.3 (10.1-14.3) gm/dl Hct 42.7 (30.3-42.9) % MCV 95 (79-97) fl MCH 32 (28-32) pg MCHC 34 (30-34) % RDW 19.5 H (13.2-15.2) % Plt Count 162 (140-440) K/mm3 Lymph % (Auto) 19.4 (13.4-35.0) % [place] % (Auto) 7.2 (0.0-7.3) % Eos % (Auto) 0.4 (0.0-4.3) % Baso % (Auto) 0.7 (0.0-1.8) % Lymph # (Auto) 1.6 (1.2-5.4) K/mm3 [place] # (Auto) 0.6 (0.0-0.8) K/mm3 Eos # (Auto) 0.0 (0.0-0.4) K/mm3 Baso # (Auto) 0.1 (0.0-0.1) K/mm3 Seg Neutrophils % 72.3 H (40.0-70.0) % Seg Neutrophils # 6.0 (1.8-7.7) K/mm3 PT 12.6 (12.2-14.9) Sec. INR 0.89 (0.87-1.13) APTT 26.2 (24.2-36.6) Sec. Sodium 138 (137-145) mmol/L Potassium 2.7 L* (3.6-5.0) mmol/L Chloride 92.6 L (98-107) mmol/L Carbon Dioxide 22 (22-30) mmol/L Anion Gap 26 mmol/L BUN 6 L (7-17) mg/dL Creatinine 0.4 L (0.6-1.2) mg/dL Estimated GFR > 60 ml/min BUN/Creatinine Ratio 15 % Glucose 117 H (65-100) mg/dL Calcium 9.7 (8.4-10.2) mg/dL Phosphorus (2.5-4.5) mg/dL Magnesium (1.7-2.3) mg/dL Total Bilirubin 0.60 (0.1-1.2) mg/dL AST 86 H (5-40) units/L ALT 45 (7-56) units/L Alkaline Phosphatase 156 H (35-129) units/L Total Protein 7.9 (6.3-8.2) g/dL Albumin 4.3 (3.9-5) g/dL Albumin/Globulin Ratio 1.2 % Lipase 21 (13-60) units/L Urine Color (Yellow) Urine Turbidity (Clear) Urine pH (5.0-7.0) Ur Specific [place] (1.003-1.030) Urine Protein (Negative) mg/dL Urine Glucose (UA) (Negative) mg/dL Urine Ketones (Negative) mg/dL Urine Blood (Negative) Urine Nitrite (Negative) Urine Bilirubin (Negative) Urine Ictotest (Negative) Urine Urobilinogen (<2.0) mg/dL Ur Leukocyte Esterase (Negative) Urine WBC (Auto) (0.0-6.0) /HPF Urine RBC (Auto) (0.0-6.0) /HPF U Epithel Cells (Auto) (0-13.0) /HPF Urine Bacteria (Auto) (Negative) /HPF Urine WBC Clumps /HPF Hyaline Casts /LPF Urine Mucus /HPF 07/10/21 07/10/21 07/10/21 Range/Units 15:38 18:59 Unknown WBC (4.5-11.0) K/mm3 RBC (3.65-5.03) M/mm3 Hgb (10.1-14.3) gm/dl Hct (30.3-42.9) % MCV (79-97) fl MCH (28-32) pg MCHC (30-34) % RDW (13.2-15.2) % Plt Count (140-440) K/mm3 Lymph % (Auto) (13.4-35.0) % [place] % (Auto) (0.0-7.3) % Eos % (Auto) (0.0-4.3) % Baso % (Auto) (0.0-1.8) % Lymph # (Auto) (1.2-5.4) K/mm3 [place] # (Auto) (0.0-0.8) K/mm3 Eos # (Auto) (0.0-0.4) K/mm3 Baso # (Auto) (0.0-0.1) K/mm3 Seg Neutrophils % (40.0-70.0) % Seg Neutrophils # (1.8-7.7) K/mm3 PT (12.2-14.9) Sec. INR (0.87-1.13) APTT (24.2-36.6) Sec. Sodium 133 L (137-145) mmol/L Potassium 4.6 D (3.6-5.0) mmol/L Chloride 91.9 L (98-107) mmol/L Carbon Dioxide 21 L (22-30) mmol/L Anion Gap 25 mmol/L BUN 5 L (7-17) mg/dL Creatinine 0.4 L (0.6-1.2) mg/dL Estimated GFR > 60 ml/min BUN/Creatinine Ratio 13 % Glucose 99 (65-100) mg/dL Calcium 9.2 (8.4-10.2) mg/dL Phosphorus 3.10 (2.5-4.5) mg/dL Magnesium 1.50 L (1.7-2.3) mg/dL Total Bilirubin (0.1-1.2) mg/dL AST (5-40) units/L ALT (7-56) units/L Alkaline Phosphatase (35-129) units/L Total Protein (6.3-8.2) g/dL Albumin (3.9-5) g/dL Albumin/Globulin Ratio % Lipase (13-60) units/L Urine Color [place] (Yellow) Urine Turbidity Slightly-cloudy (Clear) Urine pH 6.0 (5.0-7.0) Ur Specific [place] 1.026 (1.003-1.030) Urine Protein 100 mg/dl (Negative) mg/dL Urine Glucose (UA) Neg (Negative) mg/dL Urine Ketones 20 (Negative) mg/dL Urine Blood Mod (Negative) Urine Nitrite Neg (Negative) Urine Bilirubin Mod (Negative) Urine Ictotest Positive (Negative) Urine Urobilinogen 4.0 (<2.0) mg/dL Ur Leukocyte Esterase Neg (Negative) Urine WBC (Auto) 34.0 H (0.0-6.0) /HPF Urine RBC (Auto) 4.0 (0.0-6.0) /HPF U Epithel Cells (Auto) 18.0 H (0-13.0) /HPF Urine Bacteria (Auto) 2+ (Negative) /HPF Urine WBC Clumps 2+ /HPF Hyaline Casts 11 /LPF Urine Mucus 3+ /HPF Vital Signs 07/10/21 07/10/21 07/10/21 12:28 17:23 17:31 Temperature 98.9 F Pulse Rate 114 H 88 Respiratory 18 11 L 11 L Rate Blood Pressure 146/95 Blood Pressure 129/96 [Right] O2 Sat by Pulse 99 100 98 Oximetry 07/10/21 07/10/21 07/10/21 17:45 18:01 18:15 Temperature Pulse Rate 90 93 H 86 Respiratory 13 12 12 Rate Blood Pressure 146/95 141/101 141/101 Blood Pressure [Right] O2 Sat by Pulse 100 100 100 Oximetry 07/10/21 07/10/21 18:31 20:11 Temperature Pulse Rate 82 83 Respiratory 11 L 18 Rate Blood Pressure 149/109 Blood Pressure 138/97 [Right] O2 Sat by Pulse 100 Oximetry - Radiology Data Radiology results: report reviewed Ordering Physician: LONNY POP Date of Service: 07/10/21 Procedure(s): CT abdomen pelvis w con Accession Number(s): [id number] cc: LONNY POP CT ABDOMEN AND PELVIS WITH IV CONTRAST INDICATION: RUQ abd pain, n/v. COMPARISON: None available. TECHNIQUE: All CT scans at this facility use dose modulation, automated exposure control, iterative reconstruction or weight based dosing, when appropriate, to reduce radiation dose to as low as reasonably achievable. FINDINGS: Lung Bases: No significant abnormality. Skeletal System: No acute abnormality. ABDOMEN: Liver: There is advanced diffuse hepatic steatosis. No acute finding. Gallbladder: There is a 7 mm gallstone. No acute finding. Bile Ducts: No significant abnormality. Pancreas: No significant abnormality. Spleen: No significant abnormality. Adrenals: No significant abnormality. Right Kidney: No significant abnormality. Left Kidney: No significant abnormality. Upper GI tract: No significant abnormality. Lymph Nodes: No significant adenopathy. Aorta: No significant abnormality. Additional Findings: No significant abnormality. PELVIS: Colon: No acute abnormality. Urinary Bladder and Distal Ureters: No significant abnormality. Appendix: No significant abnormality. Lymph Nodes: No significant adenopathy. Additional Findings: None. IMPRESSION: 1. No acute process in the abdomen or pelvis. 2. Incidental findings, as above. Signer Name: Shahbaz Lamb MD Signed: 07/10/2021 5:36 PM Workstation Name: [email or web address] Transcribed By: Dictated By: Shahbaz Lamb MD Electronically Authenticated By: Shahbaz Lamb MD Signed Date/Time: 07/10/211735 DD/ 33 TD/TT: Ordering Physician: LONNY POP Date of Service: 07/10/21 Procedure(s): US abdomen limited Accession Number(s): [id number] cc: LONNY POP LIMITED RUQ ABDOMINAL ULTRASOUND INDICATION: RUQ abd pain with gallstone. COMPARISON: CT done earlier today. FINDINGS: Pancreas: Visualized portions show no significant abnormality. Abdominal Aorta: No significant abnormality. IVC: No significant abnormality. Liver: The liver measures 19.7 cm in length. Diffusely increased hepatic echogenicity which typically indicates hepatic steatosis.. Normal hepatopedal blood flow in the main portal vein. Gallbladder: Mildly distended with small stone.. Bile ducts: No significant abnormality. Common bile duct measures 6 mm. Right kidney: No significant abnormality visualized.. Free fluid: None. Additional Findings: None. IMPRESSION: 1. Hepatomegaly with findings suggesting hepatic steatosis. 2. Cholelithiasis without evidence of acute cholecystitis.. Signer Name: Wayne Blackmon MD Signed: 07/10/2021 7:20 PM Workstation Name: [id number] Transcribed By: TIFFANY Dictated By: Wayne Blackmon MD Electronically Authenticated By: Wayne Blackmon MD Signed Date/Time: 07/10/211919 DD/ 18 TD/TT: - Medical Decision Making Patient is a 36-year-old female presents emergency room complaints of blood in her stool that began 4 days ago. She states that that she only notices the blood whenever she has a bowel movement. She states that she feels like she has hemorrhoids and has a lump present. She states that it is bright red blood in her stool. She states that she has had this once in the past approximately 2 years ago but did not follow-up with anyone, she has never seen a GI doctor or had a colonoscopy. Patient states that she is also been having right upper quadrant abdominal pain for 4 days. She also has associated nausea and vomiting. She denies any fever, melena, hematemesis, urinary symptoms. Past medical history of hypertension, asthma, hyperlipidemia. No allergies to med ications. Last menstrual cycle 06/19/2021. She has a past abdominal surgical history of a . She is a current everyday drinker. She is a current tobacco user and smokes half a pack a day. Initial vitals with tachycardia which improved to normal upon repeat. On exam: Right upper quadrant abdominal tenderness, no guarding, no rebound, no rigidity, no pulses, no peritoneal signs, dietetic assistant: lisbet, LACE WEAVER, there is a 1 cm nonthrombosed external hemorrhoid, there is brown stool with small specks of bright red blood, no melena, able to reduce hemorrhoid, hemocult performed and is positive. H&H is normal. Labs significant for hypokalemia, elevated AST, hypomagnesium. Ordered for repletion of patient's electrolytes. On repeat of her BMP her potassium has significantly improved. UA shows evidence of UTI. CT abdomen pelvis with IV contrast: 1. No acute process in the abdomen or pelvis. 2. Incidental findings, as above. US RUQ: 1. Hepatomegaly with findings suggesting hepatic steatosis. 2. Cholelithiasis without evidence of acute cholecystitis. Discussed all results with patient answer questions. Patient given medications while in the emergency department with improvement of her symptoms and she was able to tolerate p.o. intake without difficulty. discussed the importance of outpatient primary care and GI follow-up. advised pt Please use medication as prescribed. Follow-up with a GI doctor. Follow-up with your primary care doctor. Follow-up with a general surgeon. Increase your fluid intake. Eat a bland liquid diet and slowly advance her diet as tolerated. Please stop smoking and drinking. Return to emergency room for any new or worsening symptoms. Critical care attestation.: If time is entered above; I have spent that time in minutes in the direct care of this critically ill patient, excluding procedure time. ED Disposition Clinical Impression: External hemorrhoid, Rectal bleeding, Elevated AST (SGOT), Hypokalemia, Alcohol abuse, Tobacco abuse Abdominal pain Qualifiers: Abdominal location: right upper quadrant Qualified Code(s): R10.11 - Right upper quadrant pain UTI (urinary tract infection) Qualifiers: Urinary tract infection type: acute cystitis Hematuria presence: without hematuria Qualified Code(s): N30.00 - Acute cystitis without hematuria Cholelithiasis Qualifiers: Cholelithiasis location: gallbladder Cholecystitis presence: without cholecystitis Biliary obstruction: without biliary obstruction Qualified Code(s): K80.20 - Calculus of gallbladder without cholecystitis without obstruction Nausea & vomiting Qualifiers: Vomiting type: unspecified Vomiting Intractability: non-intractable Qualified Code(s): R11.2 - Nausea with vomiting, unspecified Disposition: 01 HOME / SELF CARE / HOMELESS Is pt being admited?: No Does the pt Need Aspirin: No Condition: Stable Instructions: Abdominal Pain (ED) Additional Instructions: Please use medication as prescribed. Follow-up with a GI doctor. Follow-up with your primary care doctor. Follow-up with a general surgeon. Increase your fluid intake. Eat a bland liquid diet and slowly advance her diet as tolerated. Please stop smoking and drinking. Return to emergency room for any new or worsening symptoms. Prescriptions: Hydrocortisone [Anucort-HC SUPPOS] 25 mg RC BID #12 supp.rect cephALEXin [Keflex] 500 mg PO BID 7 Days #14 cap traMADoL [Ultram 50 MG tab] 50 mg PO Q6HR PRN #10 tablet PRN Reason: Pain Ondansetron [Zofran Odt] 4 mg PO Q8HR PRN #12 tab.rapdis PRN Reason: nausea/vomiting Referrals: LYNDSAY POOL MD [Staff Physician] - 3-5 Days [facility] [Provider Group] - 3-5 Days [facility] [Provider Group] - 3-5 Days JOSÉ ANTONIO WALTER MD [Staff Physician] - 3-5 Days Time of Disposition: 19:49 Print Language: [place]
[2021-07-10 17:19] LABS: Bacteria,Urine 2+ /HPF (Negative); Bilirubin,Urine MOD (Negative); Blood,Urine MOD (Negative); Color,Urine Amber (Yellow); Hyaline Casts,Urine 11 /LPF; Mucus,Urine 3+ /HPF
[2021-07-10 17:27] LABS: INR 0.89 (0.87-1.13)
[2021-07-10 17:28] LABS: Partial Thromboplastin Time 26.2 Sec. (24.2-36.6)
[2021-07-10 17:38] LABS: Ictotest,Urine Positive (Negative)
[2021-07-10] MEDS: POTASSIUM CHLORIDE 10 MEQ 10 MEQ/100 ML BAG IV SCH ×2 (17:40→19:05)
--- NOTE | 2021-07-10 17:41 | Cat Scan Report ---
CT ABDOMEN AND PELVIS WITH IV CONTRAST INDICATION: RUQ abd pain, n/v. COMPARISON: None available. TECHNIQUE: All CT scans at this facility use dose modulation, automated exposure control, iterative reconstructi on or weight based dosing, when appropriate, to reduce radiation dose to as low as reasonably achieva ble. FINDINGS: Lung Bases: No significant abnormality. Skeletal System: No acute abnormality. ABDOMEN: Liver: There is advanced diffuse hepatic steatosis. No acute finding. Gallbladder: There is a 7 mm gallstone. No acute finding. Bile Ducts: No significant abnormality. Pancreas: No significant abnormality. Spleen: No significant abnormality. Adrenals: No significant abnormality. Right Kidney: No significant abnormality. Left Kidney: No significant abnormality. Upper GI tract: No significant abnormality. Lymph Nodes: No significant adenopathy. Aorta: No significant abnormality. Additional Findings: No significant abnormality. PELVIS: Colon: No acute abnormality. Urinary Bladder and Distal Ureters: No significant abnormality. Appendix: No significant abnormality. Lymph Nodes: No significant adenopathy. Additional Findings: None. IMPRESSION: 1. No acute process in the abdomen or pelvis. 2. Incidental findings, as above. Signer Name: Shahbaz Lamb MD Signed: 07/10/2021 5:36 PM Workstation Name: [id number]
[2021-07-10] MEDS ORDERED: MAGNESIUM SULFATE 2 GM/50 ML BAG IV ONE (18:40)
--- NOTE | 2021-07-10 19:24 | Ultrasound Report ---
LIMITED RUQ ABDOMINAL ULTRASOUND INDICATION: RUQ abd pain with gallstone. COMPARISON: CT done earlier today. FINDINGS: Pancreas: Visualized portions show no significant abnormality. Abdominal Aorta: No significant abnormality. IVC: No significant abnormality. Liver: The liver measures 19.7 cm in length. Diffusely increased hepatic echogenicity which typically indicates hepatic steatosis.. Normal hepatopedal blood flow in the main portal vein. Gallbladder: Mildly distended with small stone.. Bile ducts: No significant abnormality. Common bile duct measures 6 mm. Right kidney: No significant abnormality visualized.. Free fluid: None. Additional Findings: None. IMPRESSION: 1. Hepatomegaly with findings suggesting hepatic steatosis. 2. Cholelithiasis without evidence of acute cholecystitis.. Signer Name: Wayne Blackmon MD Signed: 07/10/2021 7:20 PM Workstation Name: [id number]
[2021-07-10 19:37] LABS: Blood Urea Nitrogen 5 mg/dL (7-17); Calcium 9.2 mg/dL (8.4-10.2); Hemolysis Index 160
[2021-07-10 19:40] LABS: BUN/Creatinine Ratio 13
[2021-07-10 20:13] VITALS: BP 138/97
--- NOTE | 2021-07-12 08:45 | Electrocardiograph Report ---
[facility] Test Date: 2021-07-10 Test Time: 17:54:11 Pat Name: SWETA GARCIA Department: Room: Gender: F Pin Cleaner: [facility] : 1985 Requested By: PAGE DURHAM Order Number: [id number] Reading MD: Floyd Lee Measurements Intervals [place] Rate: 86 P: 57 UT: 202 QRS: 53 QRSD: 75 T: 70 QT: 409 QTc: 489 Interpretive Statements Sinus rhythm Borderline prolonged UT interval Left atrial enlargement nonspecific st-t No previous ECG available for comparison Electronically Signed On 07-12-2021 8:44:50 EDT by Floyd Lee
== END 2021-07-10 20:13 | disposition home or self-care (01) ==
LOC: ED 12:18
DX: K64.4 Residual hemorrhoidal skin tags (principal); K62.5 Hemorrhage of anus and rectum; R74.01 Elevation of levels of liver transaminase levels; E87.6 Hypokalemia; F10.10 Alcohol abuse, uncomplicated; Z72.0 Tobacco use; R10.9 Unspecified abdominal pain; N39.0 Urinary tract infection, site not specified; K80.20 Calculus of gallbladder without cholecystitis without obstruction; R11.2 Nausea with vomiting, unspecified
CPT/HCPCS: 36415; 74177; 76705; 80048; 80053; 81001; 83690; 83735; 84100; 85025; 85610; 85730; 87086; 93005; 96361; 96365; 96366; 96375; 99284; J2270; J2405; J3480; J7030; Q9967; J3475

== ENCOUNTER 2021-08-20 12:56 | Emergency (ER) | payer BC ==
[2021-08-20 13:30] VITALS: BP 125/88
[2021-08-20] MEDS ORDERED: CYCLOBENZAPRINE 10 MG TAB PO ONE (13:51)
[2021-08-20] MEDS ORDERED: KETOROLAC 60 MG/2 ML INJ IM ONE (13:51)
[2021-08-20] MEDS ORDERED: predniSONE 20 MG TAB PO ONE (13:51)
[2021-08-20 14:17] LABS: HCG Qualitative,Urine Negative (Negative)
[2021-08-20 14:30] LABS: Bilirubin,Urine MOD (Negative); Blood,Urine NEG (Negative); Color,Urine Amber (Yellow); Ictotest,Urine Negative (Negative); Mucus,Urine 3+ /HPF
--- NOTE | 2021-08-20 15:33 | Emergency Department Report ---
ED Back Pain/Injury HPI - General Chief Complaint: Back Pain/Injury Stated Complaint: LOW BACK PAIN,BOTH LEGS SHARP PAIN Time Seen by Provider: 08/20/21 13:37 Source: patient Limitations: No Limitations - History of Present Illness Initial Comments: This is a 36-year-old female nontoxic, well nourished in appearance, no acute signs of distress presents to the ED with c/o of acute on chronic lower back pain. Patient stated that the past 2 days she was heavy lifting and developed this pain at work. 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 Patient states has history of sciatica nerve pain which is similar symptoms as today. Patient states that pain radiates through to his left lower extremity. Patient denies any trauma. Denies any bladder or bowel instability. Patient denies any urinary symptoms. Denies any fever, chills, nausea, vomiting, headache, stiff neck, chest pain or shortness of breath. Patient denies any numbness or tingling. Denies any allergies. MD Complaint: back pain -: days(s) Similar Symptoms Previously: Yes Place: work Radiation: left leg Severity: mild Severity scale (0 -10): 8 Quality: aching Consistency: intermittent Improves With: immobilization, sitting upright Worsens With: movement, walking Context: while lifting, turning/twisting Associated Symptoms: denies other symptoms. denies: confusion, weakness, chest pain, numbness, difficulty walking, cough, difficulty urinating, diaphoresis, incontinence, fever/chills, constipation, headaches, abdominal pain, loss of appetite, malaise, nausea/vomiting, rash, seizure, shortness of breath, syncope - Related Data Previous Rx's Medication Instructions Recorded Last Taken Type Acetaminophen/Codeine [Tylenol 1 tab PO Q6H PRN #12 tab 06/05/19 Unknown Rx /Codeine # 3 tab] Ondansetron [Zofran ODT TAB] 8 mg PO Q8HR PRN #12 tab.rapdis 06/05/19 Unknown Rx Potassium Chloride 10 meq PO DAILY #5 tablet.er 02/21/20 Unknown Rx predniSONE [Deltasone] 20 mg PO DAILY #15 tablet 02/21/20 Unknown Rx traMADoL [Ultram] 50 mg PO Q6HR PRN #24 tablet 02/21/20 Unknown Rx Naproxen [Naprosyn TAB] 500 mg PO BID 10 Days tablet 04/09/20 Unknown Rx methOCARBAMOL [Robaxin TAB] 500 mg PO Q6H 5 Days tablet 04/09/20 Unknown Rx methylPREDNISolone [Medrol 4MG 4 mg PO ONCE #1 tab.ds.pk 04/09/20 Unknown Rx DOSEPAK (21 tabs)] Nitrofurantoin [place]/M-Cryst 100 mg PO Q12HR 10 Days #20 capsule 04/29/20 Unknown Rx [Macrobid CAP] Benzonatate [Tessalon Perles] 100 mg PO Q8HR PRN #12 capsule 05/30/21 Unknown Rx Ondansetron [Zofran Odt] 4 mg PO Q8HR PRN #12 tab.rapdis 05/30/21 Unknown Rx cephALEXin [Keflex] 500 mg PO BID 7 Days #14 cap 05/30/21 Unknown Rx guaiFENesin/DEXTROMETHORPHAN 1 each PO Q6HR PRN #20 capsule 05/30/21 Unknown Rx [Coricidin Hbp Chest Jimy-Cough] Hydrocortisone [Anucort-HC SUPPOS] 25 mg RC BID #12 supp.rect 07/10/21 Unknown Rx Ondansetron [Zofran Odt] 4 mg PO Q8HR PRN #12 tab.rapdis 07/10/21 Unknown Rx cephALEXin [Keflex] 500 mg PO BID 7 Days #14 cap 07/10/21 Unknown Rx traMADoL [Ultram 50 MG tab] 50 mg PO Q6HR PRN #10 tablet 07/10/21 Unknown Rx Cyclobenzaprine [Flexeril] 10 mg PO QHS PRN #10 tablet 08/20/21 Unknown Rx Naproxen 500 mg PO Q12H PRN #12 tablet 08/20/21 Unknown Rx Allergies Allergy/AdvReac Type Severity Reaction Status Date / Time No Known Allergies Allergy Verified 08/20/21 13:29 ED Review of Systems ROS: Stated complaint: LOW BACK PAIN,BOTH LEGS SHARP PAIN Other details as noted in HPI Comment: All other systems reviewed and negative Constitutional: denies: chills, fever Eyes: denies: eye pain, eye discharge, vision change ENT: denies: ear pain, throat pain Respiratory: denies: cough, shortness of breath, wheezing Cardiovascular: denies: chest pain, palpitations Endocrine: no symptoms reported Gastrointestinal: denies: abdominal pain, nausea, diarrhea Genitourinary: denies: urgency, dysuria, discharge Musculoskeletal: back pain. denies: joint swelling, arthralgia Skin: denies: rash, lesions Neurological: denies: headache, weakness, paresthesias Psychiatric: denies: anxiety, depression Hematological/Lymphatic: denies: easy bleeding, easy bruising ED Past Medical Hx - Past Medical History Hx Hypertension: Yes Hx Asthma: Yes Additional medical history: Gallstones - Surgical History Additional Surgical History: - Social History Smoking Status: Current Every Day Smoker Substance Use Type: Alcohol - Medications Home Medications: Home Medications Medication Instructions Recorded Confirmed Last Taken Type Acetaminophen/Codeine [Tylenol 1 tab PO Q6H PRN #12 tab 06/05/19 Unknown Rx /Codeine # 3 tab] Ondansetron [Zofran ODT TAB] 8 mg PO Q8HR PRN #12 tab.rapdis 06/05/19 Unknown Rx Potassium Chloride 10 meq PO DAILY #5 tablet.er 02/21/20 Unknown Rx predniSONE [Deltasone] 20 mg PO DAILY #15 tablet 02/21/20 Unknown Rx traMADoL [Ultram] 50 mg PO Q6HR PRN #24 tablet 02/21/20 Unknown Rx Naproxen [Naprosyn TAB] 500 mg PO BID 10 Days tablet 04/09/20 Unknown Rx methOCARBAMOL [Robaxin TAB] 500 mg PO Q6H 5 Days tablet 04/09/20 Unknown Rx methylPREDNISolone [Medrol 4MG 4 mg PO ONCE #1 tab.ds.pk 04/09/20 Unknown Rx DOSEPAK (21 tabs)] Nitrofurantoin [place]/M-Cryst 100 mg PO Q12HR 10 Days #20 capsule 04/29/20 Unknown Rx [Macrobid CAP] Benzonatate [Tessalon Perles] 100 mg PO Q8HR PRN #12 capsule 05/30/21 Unknown Rx Ondansetron [Zofran Odt] 4 mg PO Q8HR PRN #12 tab.rapdis 05/30/21 Unknown Rx cephALEXin [Keflex] 500 mg PO BID 7 Days #14 cap 05/30/21 Unknown Rx guaiFENesin/DEXTROMETHORPHAN 1 each PO Q6HR PRN #20 capsule 05/30/21 Unknown Rx [Coricidin Hbp Chest Jimy-Cough] Hydrocortisone [Anucort-HC SUPPOS] 25 mg RC BID #12 supp.rect 07/10/21 Unknown Rx Ondansetron [Zofran Odt] 4 mg PO Q8HR PRN #12 tab.rapdis 07/10/21 Unknown Rx cephALEXin [Keflex] 500 mg PO BID 7 Days #14 cap 07/10/21 Unknown Rx traMADoL [Ultram 50 MG tab] 50 mg PO Q6HR PRN #10 tablet 07/10/21 Unknown Rx Cyclobenzaprine [Flexeril] 10 mg PO QHS PRN #10 tablet 08/20/21 Unknown Rx Naproxen 500 mg PO Q12H PRN #12 tablet 08/20/21 Unknown Rx ED Physical Exam - General Limitations: No Limitations General appearance: alert, in no apparent distress - Head Head exam: Present: atraumatic, normocephalic - Eye Eye exam: Present: normal appearance - Neck Neck exam: Present: normal inspection, full ROM. Absent: lymphadenopathy - Respiratory Respiratory exam: Absent: respiratory distress - Cardiovascular Cardiovascular Exam: Present: regular rate - GI/Abdominal GI/Abdominal exam: Present: soft. Absent: distended, tenderness - Extremities Exam Extremities exam: Present: normal inspection, full ROM, normal capillary refill. Absent: tenderness, pedal edema, joint swelling, calf tenderness - Back Exam Back exam: Present: normal inspection, full ROM, paraspinal tenderness (Left lumbar paraspinal). Absent: tenderness, CVA tenderness (R), CVA tenderness (L), muscle spasm, vertebral tenderness, rash noted - Expanded Back Exam Expanded Back exam: Absent: saddle anesthesia Back exam: Negative Straight Leg Raising: Left, Right - Neurological Exam Neurological exam: Present: alert, oriented X3, normal gait - Psychiatric Psychiatric exam: Present: normal affect, normal mood - Skin Skin exam: Present: warm, dry, intact, normal color. Absent: rash ED Course Vital Signs 08/20/21 13:28 Temperature 98.5 F Pulse Rate 86 Respiratory 16 Rate Blood Pressure 125/88 [Right] O2 Sat by Pulse 99 Oximetry - Reevaluation(s) Reevaluation #1: 08/20/21 15:31 Patient is speaking in full sentences with no signs of distress noted. ED Medical Decision Making - Lab Data Lab Results 08/20/21 Range/Units 14:04 Urine Color [place] (Yellow) Urine Turbidity Clear (Clear) Urine pH 5.0 (5.0-7.0) Ur Specific [place] 1.031 H (1.003-1.030) Urine Protein 100 mg/dl (Negative) mg/dL Urine Glucose (UA) Neg (Negative) mg/dL Urine Ketones 20 (Negative) mg/dL Urine Blood Neg (Negative) Urine Nitrite Neg (Negative) Ur Reducing Substances Not Reportable Urine Bilirubin Mod (Negative) Urine Ictotest Negative (Negative) Urine Urobilinogen 4.0 (<2.0) mg/dL Ur Leukocyte Esterase Neg (Negative) Urine WBC (Auto) 5.0 (0.0-6.0) /HPF Urine RBC (Auto) 2.0 (0.0-6.0) /HPF U Epithel Cells (Auto) 11.0 (0-13.0) /HPF Urine Mucus 3+ /HPF Urine HCG, Qual Negative (Negative) - Medical Decision Making This is a 36-year-old female that presents with low back strain. Patient is stable was examined by me. There is no spinal tenderness. There is no cauda equina syndrome during examination. No bladder or bowel instability. Patient received Toradol 60 mg IM, flexeril, and prednisone in the ED which stated that her symptoms has resolved and subsided. Patient is discharged with muscle relaxant and Motrin. Patient was instructed not to operate any machinery while taking muscle relaxant as they cause her drowsiness. Patient was referred to Follow-up with a primary care doctor in 3-5 days or if symptoms worsen and continue return to emergency room as soon as possible. At time of discharge, the patient does not seem toxic or ill in appearance. No acute signs of distress noted. Patient agrees to discharge treatment plan of care. No further questions noted by the patient. This chart is dictated with using [employer] Critical care attestation.: If time is entered above; I have spent that time in minutes in the direct care of this critically ill patient, excluding procedure time. ED Disposition Clinical Impression: Low back strain Qualifiers: Encounter type: initial encounter Qualified Code(s): S39.012A - Strain of muscle, fascia and tendon of lower back, initial encounter Disposition: HOME / SELF CARE / HOMELESS Is pt being admited?: No Does the pt Need Aspirin: No Condition: Stable Instructions: Lumbosacral Strain, Cyclobenzaprine tablets Additional Instructions: Follow-up with your primary care doctor in 3-5 days or if symptoms worsen such as bladder or bowel stability, chest pain, short of breath, numbness or tingling sensation in extremities, headache, dizziness, visual changes, nausea vomiting, or abdominal pain, return back to emergency room as was possible. Take naproxen and Flexeril as prescribed. Do not operate heavy machinery while taking Flexeril due to sedation Prescriptions: Cyclobenzaprine [Flexeril] 10 mg PO QHS PRN #10 tablet PRN Reason: Muscle Spasm Naproxen 500 mg PO Q12H PRN #12 tablet PRN Reason: Pain , Severe (7-10) Referrals: PRIMARY CARE, [Primary Care Provider] - 3-5 Days LYNDSAY POOL MD [Staff Physician] - 3-5 Days Forms: Work/School Release Form(ED) Time of Disposition: 15:34
== END 2021-08-20 16:12 | disposition home or self-care (01) ==
LOC: ED 12:56
DX: S39.012A Strain of muscle, fascia and tendon of lower back, initial encounter (principal); I10 Essential (primary) hypertension; J45.909 Unspecified asthma, uncomplicated; F17.200 Nicotine dependence, unspecified, uncomplicated; X58.XXXA Exposure to other specified factors, initial encounter; Y93.89 Activity, other specified; Y92.89 Other specified places as the place of occurrence of the external cause; Y99.8 Other external cause status
CPT/HCPCS: 81001; 81025; 96372; 99283; J1885; J7512

== ENCOUNTER 2021-10-16 14:56 | Emergency (ER) | payer BC | END 2021-10-16 15:00 | disposition left against medical advice (07) | LOC: ED 14:56 | DX: M79.643 Pain in unspecified hand (principal); Z53.21 Procedure and treatment not carried out due to patient leaving prior to being seen by health care provider ==

== ENCOUNTER 2021-12-13 10:34 | Emergency (ER) | payer SELFPAY ==
[2021-12-13 11:08] VITALS: BP 106/75
--- NOTE | 2021-12-13 13:08 | Emergency Department Report ---
ED General Adult HPI - General Chief complaint: Medical Clearance Stated complaint: LEGS/ANKLES/SWOLLEN PAIN Time Seen by Provider: 12/13/21 12:58 Source: patient Mode of arrival: Ambulatory Limitations: No Limitations - History of Present Illness Initial comments: 36-year-old -[place] female with a history of schizophrenia affective disorder bipolar and hypertension hyperlipidemia and asthma presents to the emergency room for bilateral lower legs edema for 7 days. Patient states that this is never happened to her. She is currently taking amlodipine and Lipitor. She states that she is compliant with her mental health medications. Patient does report she is homeless and sleeps in her car where her legs are always hanging down. She denies any chest pain or shortness of breathing no headache no nausea no vomiting no diarrhea or abdominal pain. Onset/Timin -: days(s) Location: left, right, lower extremity Severity scale (0 -10): 0 Consistency: constant Improves with: none Worsens with: immobilization Associated Symptoms: denies other symptoms Treatments Prior to Arrival: none - Related Data Previous Rx's Medication Instructions Recorded Last Taken Type Acetaminophen/Codeine [Tylenol 1 tab PO Q6H PRN #12 tab 06/05/19 Unknown Rx /Codeine # 3 tab] Ondansetron [Zofran ODT TAB] 8 mg PO Q8HR PRN #12 tab.rapdis 06/05/19 Unknown Rx Potassium Chloride 10 meq PO DAILY #5 tablet.er 02/21/20 Unknown Rx predniSONE [Deltasone] 20 mg PO DAILY #15 tablet 02/21/20 Unknown Rx traMADoL [Ultram] 50 mg PO Q6HR PRN #24 tablet 02/21/20 Unknown Rx Naproxen [Naprosyn TAB] 500 mg PO BID 10 Days tablet 04/09/20 Unknown Rx methOCARBAMOL [Robaxin TAB] 500 mg PO Q6H 5 Days tablet 04/09/20 Unknown Rx methylPREDNISolone [Medrol 4MG 4 mg PO ONCE #1 tab.ds.pk 04/09/20 Unknown Rx DOSEPAK (21 tabs)] Nitrofurantoin [place]/M-Cryst 100 mg PO Q12HR 10 Days #20 capsule 04/29/20 Unknown Rx [Macrobid CAP] Benzonatate [Tessalon Perles] 100 mg PO Q8HR PRN #12 capsule 05/30/21 Unknown Rx Ondansetron [Zofran Odt] 4 mg PO Q8HR PRN #12 tab.rapdis 05/30/21 Unknown Rx cephALEXin [Keflex] 500 mg PO BID 7 Days #14 cap 05/30/21 Unknown Rx guaiFENesin/DEXTROMETHORPHAN 1 each PO Q6HR PRN #20 capsule 05/30/21 Unknown Rx [Coricidin Hbp Chest Jimy-Cough] Hydrocortisone [Anucort-HC SUPPOS] 25 mg RC BID #12 supp.rect 07/10/21 Unknown Rx Ondansetron [Zofran Odt] 4 mg PO Q8HR PRN #12 tab.rapdis 07/10/21 Unknown Rx cephALEXin [Keflex] 500 mg PO BID 7 Days #14 cap 07/10/21 Unknown Rx traMADoL [Ultram 50 MG tab] 50 mg PO Q6HR PRN #10 tablet 07/10/21 Unknown Rx Cyclobenzaprine [Flexeril] 10 mg PO QHS PRN #10 tablet 08/20/21 Unknown Rx Naproxen 500 mg PO Q12H PRN #12 tablet 08/20/21 Unknown Rx Allergies Allergy/AdvReac Type Severity Reaction Status Date / Time No Known Allergies Allergy Verified 08/20/21 13:29 ED Review of Systems ROS: Stated complaint: LEGS/ANKLES/SWOLLEN PAIN Other details as noted in HPI Comment: All other systems reviewed and negative ED Past Medical Hx - Past Medical History Previous Medical History?: Yes Hx Hypertension: Yes Hx Asthma: Yes Additional medical history: Gallstones, hyperlipidemia - Surgical History Additional Surgical History: - Social History Smoking Status: Current Every Day Smoker Substance Use Type: Alcohol - Medications Home Medications: Home Medications Medication Instructions Recorded Confirmed Last Taken Type Acetaminophen/Codeine [Tylenol 1 tab PO Q6H PRN #12 tab 06/05/19 Unknown Rx /Codeine # 3 tab] Ondansetron [Zofran ODT TAB] 8 mg PO Q8HR PRN #12 tab.rapdis 06/05/19 Unknown Rx Potassium Chloride 10 meq PO DAILY #5 tablet.er 02/21/20 Unknown Rx predniSONE [Deltasone] 20 mg PO DAILY #15 tablet 02/21/20 Unknown Rx traMADoL [Ultram] 50 mg PO Q6HR PRN #24 tablet 02/21/20 Unknown Rx Naproxen [Naprosyn TAB] 500 mg PO BID 10 Days tablet 04/09/20 Unknown Rx methOCARBAMOL [Robaxin TAB] 500 mg PO Q6H 5 Days tablet 04/09/20 Unknown Rx methylPREDNISolone [Medrol 4MG 4 mg PO ONCE #1 tab.ds.pk 04/09/20 Unknown Rx DOSEPAK (21 tabs)] Nitrofurantoin [place]/M-Cryst 100 mg PO Q12HR 10 Days #20 capsule 04/29/20 Unknown Rx [Macrobid CAP] Benzonatate [Tessalon Perles] 100 mg PO Q8HR PRN #12 capsule 05/30/21 Unknown Rx Ondansetron [Zofran Odt] 4 mg PO Q8HR PRN #12 tab.rapdis 05/30/21 Unknown Rx cephALEXin [Keflex] 500 mg PO BID 7 Days #14 cap 05/30/21 Unknown Rx guaiFENesin/DEXTROMETHORPHAN 1 each PO Q6HR PRN #20 capsule 05/30/21 Unknown Rx [Coricidin Hbp Chest Jimy-Cough] Hydrocortisone [Anucort-HC SUPPOS] 25 mg RC BID #12 supp.rect 07/10/21 Unknown Rx Ondansetron [Zofran Odt] 4 mg PO Q8HR PRN #12 tab.rapdis 07/10/21 Unknown Rx cephALEXin [Keflex] 500 mg PO BID 7 Days #14 cap 07/10/21 Unknown Rx traMADoL [Ultram 50 MG tab] 50 mg PO Q6HR PRN #10 tablet 07/10/21 Unknown Rx Cyclobenzaprine [Flexeril] 10 mg PO QHS PRN #10 tablet 08/20/21 Unknown Rx Naproxen 500 mg PO Q12H PRN #12 tablet 08/20/21 Unknown Rx ED Physical Exam - General Limitations: No Limitations General appearance: alert, in no apparent distress - Head Head exam: Present: atraumatic, normocephalic - Eye Eye exam: Present: normal appearance - ENT ENT exam: Present: mucous membranes moist - Neck Neck exam: Present: normal inspection - Respiratory Respiratory exam: Present: normal lung sounds bilaterally. Absent: respiratory distress - Cardiovascular Cardiovascular Exam: Present: regular rate, normal rhythm. Absent: systolic murmur, diastolic murmur, rubs, gallop - GI/Abdominal GI/Abdominal exam: Present: soft, normal bowel sounds - Extremities Exam Extremities exam: Present: normal inspection, full ROM, normal capillary refill, pedal edema. Absent: tenderness, calf tenderness - Back Exam Back exam: Present: normal inspection - Neurological Exam Neurological exam: Present: alert, oriented X3 - Psychiatric Psychiatric exam: Present: normal affect, normal mood - Skin Skin exam: Present: warm, dry, intact, normal color. Absent: rash ED Course Vital Signs 12/13/21 11:05 Temperature 98.4 F Pulse Rate 86 Respiratory 18 Rate Blood Pressure 106/75 O2 Sat by Pulse 99 Oximetry ED Medical Decision Making - Lab Data Result diagrams: 12/13/21 14:03 12/13/21 14:03 - Medical Decision Making 36-year-old -[place] female with a history of schizophrenia affective disorder bipolar and hypertension hyperlipidemia and asthma presents to the emergency room for bilateral lower legs edema for 7 days. Patient states that this is never happened to her. She is currently taking amlodipine and Lipitor. She states that she is compliant with her mental health medications. Patient does report she is homeless and sleeps in her car where her legs are always hanging down. She denies any chest pain or shortness of breathing no headache no nausea no vomiting no diarrhea or abdominal pain. Basic labs have been ordered and urine. Looking for protein in the urine. BNP for elevation. Discussed with patient if everything is clear this is most likely due to to her having her feet dangling constantly. Patient verbalized understanding Critical care attestation.: If time is entered above; I have spent that time in minutes in the direct care of this critically ill patient, excluding procedure time. ED Disposition Clinical Impression: Bilateral lower extremity edema Disposition: 01 HOME / SELF CARE / HOMELESS Is pt being admited?: No Does the pt Need Aspirin: No Condition: Stable Instructions: Edema Additional Instructions: Labs are normal. I like for you to follow-up with your primary care provider. I like for you to elevate your feet as much as possible. Referrals: PRIMARY CAREMD [Primary Care Provider] - 3-[address] [facility] [Provider Group] - 3-5 Days Forms: Work/School Release Form(ED) Time of Disposition: 16:10
[2021-12-13 13:31] LABS: Bilirubin,Urine NEG (Negative); Blood,Urine NEG (Negative); Color,Urine Yellow (Yellow); Mucus,Urine FEW /HPF; Protein,Urine <15 mg/dL mg/dL (Negative); RBC,Urine < 1.0 /HPF (0.0-6.0); Urobilinogen,Urine < 2.0 mg/dL (<2.0); WBC,Urine < 1.0 /HPF (0.0-6.0)
[2021-12-13 14:41] LABS: Basophils # (Auto) 0.1 K/mm3 (0.0-0.1); Basophils % (Auto) 1.1 % (0.0-1.8); Eosinophils # (Auto) 0.2 K/mm3 (0.0-0.4); Eosinophils % (Auto) 3.2 % (0.0-4.3); Hematocrit 36.9 % (30.3-42.9); Hemoglobin 12.2 gm/dl (10.1-14.3); Lymphocytes # (Auto) 2.1 K/mm3 (1.2-5.4); Lymphocytes % (Auto) 31.7 % (13.4-35.0); Mean Corpuscular HGB Conc 33 % (30-34); Mean Corpuscular Volume 97 fl (79-97); Monocytes # (Auto) 0.6 K/mm3 (0.0-0.8); Monocytes % (Auto) 8.6 % (0.0-7.3); Platelet Count 158 K/mm3 (140-440); Red Blood Count 3.82 M/mm3 (3.65-5.03); Red Cell Distribution Width 15.6 % (13.2-15.2)
[2021-12-13 16:03] LABS: Alanine Aminotransferase 7 units/L (7-56); Albumin 4.2 g/dL (3.9-5); Blood Urea Nitrogen 6 mg/dL (7-17); Calcium 9.4 mg/dL (8.4-10.2); Hemolysis Index 55
[2021-12-13 16:22] LABS: BUN/Creatinine Ratio 15
== END 2021-12-13 16:28 | disposition home or self-care (01) ==
LOC: ED 10:34
DX: R60.0 Localized edema (principal); I10 Essential (primary) hypertension; F17.200 Nicotine dependence, unspecified, uncomplicated; Z98.890 Other specified postprocedural states; Z72.89 Other problems related to lifestyle
CPT/HCPCS: 36415; 80053; 81001; 83880; 85025; 99283

== ENCOUNTER 2022-06-12 09:40 | Emergency (ER) | payer BC ==
[2022-06-12 09:56] VITALS: BP 116/83
[2022-06-12 10:51] LABS: Hematocrit 40.5 % (30.3-42.9); Hemoglobin 13.2 gm/dl (10.1-14.3); Mean Corpuscular HGB Conc 33 % (30-34); Mean Corpuscular Volume 87 fl (79-97); Red Blood Count 4.65 M/mm3 (3.65-5.03); Red Cell Distribution Width 15.3 % (13.2-15.2)
[2022-06-12 10:52] LABS: Platelet Count 192 K/mm3 (140-440)
[2022-06-12 11:12] LABS: Alanine Aminotransferase 11 units/L (7-56); Albumin 4.3 g/dL (3.9-5); Blood Urea Nitrogen 6 mg/dL (7-17); Calcium 9.2 mg/dL (8.4-10.2); Hemolysis Index 43
[2022-06-12 11:39] LABS: BUN/Creatinine Ratio 9
[2022-06-12 11:45] LABS: RBC,Urine < 1.0 /HPF (0.0-6.0)
[2022-06-12] MEDS ORDERED: ONDANSETRON 4 MG/2 ML INJ IV ONE (11:45)
[2022-06-12] MEDS ORDERED: MORPHINE 4 MG/1 ML INJ IV ONE (11:45)
[2022-06-12] MEDS ORDERED: SODIUM CHLORIDE 0.9% 1000 ML 1,000 ML IV ONE (11:45)
[2022-06-12 12:20] LABS: Color,Urine Straw (Yellow); WBC,Urine < 1.0 /HPF (0.0-6.0)
--- NOTE | 2022-06-12 13:21 | Emergency Department Report ---
ED Abdominal Pain HPI - General Chief Complaint: Abdominal Pain Stated Complaint: STOMACH PAIN Time Seen by Provider: 06/12/22 11:11 Source: patient Mode of arrival: Ambulatory Limitations: No Limitations - History of Present Illness Initial Comments: This is a 37-year-old female nontoxic, well nourished in appearance, no acute signs of distress presents to the ED with c/o of nausea and vomiting and abdominal pain several days. Patient describes vomiting as food content and yellow gastric acid. Patient describes abdominal pain as cramping and aching with level of 8/10 primarily to the upper abdomen. Patient denies chest pain, short of breath, fever, hemoptysis, blood in stool, chills, headache, stiff neck, numbness or tingling. Patient denies any diarrhea or constipation. Denies any blood in stool. Patient denies any recent travels. Patient denies any allergies. MD Complaint: abdominal pain -: days(s) Location: LUQ, RUQ Radiation: none Migration to: no migration Severity: mild Severity scale (0 -10): 8 Quality: cramping, aching Consistency: constant Improves With: nothing Worsens With: nothing Associated Symptoms: nausea, vomiting. denies: diarrhea, fever, chills, constipation, dysuria, hematemesis, hematochezia, melena, hematuria, anorexia, syncope - Related Data Previous Rx's Medication Instructions Recorded Last Taken Type Acetaminophen/Codeine [Tylenol 1 tab PO Q6H PRN #12 tab 06/05/19 Unknown Rx /Codeine # 3 tab] Ondansetron [Zofran ODT TAB] 8 mg PO Q8HR PRN #12 tab.rapdis 06/05/19 Unknown Rx Potassium Chloride 10 meq PO DAILY #5 tablet.er 02/21/20 Unknown Rx predniSONE [Deltasone] 20 mg PO DAILY #15 tablet 02/21/20 Unknown Rx traMADoL [Ultram] 50 mg PO Q6HR PRN #24 tablet 02/21/20 Unknown Rx Naproxen [Naprosyn TAB] 500 mg PO BID 10 Days tablet 04/09/20 Unknown Rx methOCARBAMOL [Robaxin TAB] 500 mg PO Q6H 5 Days tablet 04/09/20 Unknown Rx methylPREDNISolone [Medrol 4MG 4 mg PO ONCE #1 tab.ds.pk 04/09/20 Unknown Rx DOSEPAK (21 tabs)] Nitrofurantoin Ashe/M-Cryst 100 mg PO Q12HR 10 Days #20 capsule 04/29/20 Unknown Rx [Macrobid CAP] Benzonatate [Tessalon Perles] 100 mg PO Q8HR PRN #12 capsule 05/30/21 Unknown Rx Ondansetron [Zofran Odt] 4 mg PO Q8HR PRN #12 tab.rapdis 05/30/21 Unknown Rx cephALEXin [Keflex] 500 mg PO BID 7 Days #14 cap 05/30/21 Unknown Rx guaiFENesin/DEXTROMETHORPHAN 1 each PO Q6HR PRN #20 capsule 05/30/21 Unknown Rx [Coricidin Hbp Chest Jimy-Cough] Hydrocortisone [Anucort-HC SUPPOS] 25 mg RC BID #12 supp.rect 07/10/21 Unknown Rx Ondansetron [Zofran Odt] 4 mg PO Q8HR PRN #12 tab.rapdis 07/10/21 Unknown Rx cephALEXin [Keflex] 500 mg PO BID 7 Days #14 cap 07/10/21 Unknown Rx traMADoL [Ultram 50 MG tab] 50 mg PO Q6HR PRN #10 tablet 07/10/21 Unknown Rx Cyclobenzaprine [Flexeril] 10 mg PO QHS PRN #10 tablet 08/20/21 Unknown Rx Naproxen 500 mg PO Q12H PRN #12 tablet 08/20/21 Unknown Rx Dicyclomine [Bentyl] 20 mg PO Q12H PRN #12 tablet 06/12/22 Unknown Rx Ondansetron [Zofran Odt] 4 mg PO Q12H PRN #12 tab.rapdis 06/12/22 Unknown Rx Allergies Allergy/AdvReac Type Severity Reaction Status Date / Time No Known Allergies Allergy Verified 06/12/22 09:57 ED Review of Systems ROS: Stated complaint: STOMACH PAIN Other details as noted in HPI Comment: All other systems reviewed and negative Constitutional: denies: chills, fever Eyes: denies: eye pain, eye discharge, vision change ENT: denies: ear pain, throat pain Respiratory: denies: cough, shortness of breath, wheezing Cardiovascular: denies: chest pain, palpitations Endocrine: no symptoms reported Gastrointestinal: abdominal pain, nausea, vomiting. denies: diarrhea, constipation, hematemesis, melena, hematochezia Genitourinary: denies: urgency, dysuria, discharge Musculoskeletal: denies: back pain, joint swelling, arthralgia Skin: denies: rash, lesions Neurological: denies: headache, weakness, paresthesias Psychiatric: denies: anxiety, depression Hematological/Lymphatic: denies: easy bleeding, easy bruising ED Past Medical Hx - Past Medical History Hx Hypertension: Yes Hx Asthma: Yes Additional medical history: Gallstones, hyperlipidemia - Surgical History Additional Surgical History: - Social History Smoking Status: Current Every Day Smoker Substance Use Type: Alcohol - Medications Home Medications: Home Medications Medication Instructions Recorded Confirmed Last Taken Type Acetaminophen/Codeine [Tylenol 1 tab PO Q6H PRN #12 tab 06/05/19 Unknown Rx /Codeine # 3 tab] Ondansetron [Zofran ODT TAB] 8 mg PO Q8HR PRN #12 tab.rapdis 06/05/19 Unknown Rx Potassium Chloride 10 meq PO DAILY #5 tablet.er 02/21/20 Unknown Rx predniSONE [Deltasone] 20 mg PO DAILY #15 tablet 02/21/20 Unknown Rx traMADoL [Ultram] 50 mg PO Q6HR PRN #24 tablet 02/21/20 Unknown Rx Naproxen [Naprosyn TAB] 500 mg PO BID 10 Days tablet 04/09/20 Unknown Rx methOCARBAMOL [Robaxin TAB] 500 mg PO Q6H 5 Days tablet 04/09/20 Unknown Rx methylPREDNISolone [Medrol 4MG 4 mg PO ONCE #1 tab.ds.pk 04/09/20 Unknown Rx DOSEPAK (21 tabs)] Nitrofurantoin Ashe/M-Cryst 100 mg PO Q12HR 10 Days #20 capsule 04/29/20 Unknown Rx [Macrobid CAP] Benzonatate [Tessalon Perles] 100 mg PO Q8HR PRN #12 capsule 05/30/21 Unknown Rx Ondansetron [Zofran Odt] 4 mg PO Q8HR PRN #12 tab.rapdis 05/30/21 Unknown Rx cephALEXin [Keflex] 500 mg PO BID 7 Days #14 cap 05/30/21 Unknown Rx guaiFENesin/DEXTROMETHORPHAN 1 each PO Q6HR PRN #20 capsule 05/30/21 Unknown Rx [Coricidin Hbp Chest Jimy-Cough] Hydrocortisone [Anucort-HC SUPPOS] 25 mg RC BID #12 supp.rect 07/10/21 Unknown Rx Ondansetron [Zofran Odt] 4 mg PO Q8HR PRN #12 tab.rapdis 07/10/21 Unknown Rx cephALEXin [Keflex] 500 mg PO BID 7 Days #14 cap 07/10/21 Unknown Rx traMADoL [Ultram 50 MG tab] 50 mg PO Q6HR PRN #10 tablet 07/10/21 Unknown Rx Cyclobenzaprine [Flexeril] 10 mg PO QHS PRN #10 tablet 08/20/21 Unknown Rx Naproxen 500 mg PO Q12H PRN #12 tablet 08/20/21 Unknown Rx Dicyclomine [Bentyl] 20 mg PO Q12H PRN #12 tablet 06/12/22 Unknown Rx Ondansetron [Zofran Odt] 4 mg PO Q12H PRN #12 tab.rapdis 06/12/22 Unknown Rx ED Physical Exam - General Limitations: No Limitations General appearance: alert, in no apparent distress - Head Head exam: Present: atraumatic, normocephalic - Eye Eye exam: Present: normal appearance - Neck Neck exam: Present: normal inspection, full ROM. Absent: tenderness, meningismus, lymphadenopathy - Respiratory Respiratory exam: Present: normal lung sounds bilaterally. Absent: respiratory distress, wheezes, rales, rhonchi, stridor, chest wall tenderness, accessory muscle use, decreased breath sounds, prolonged expiratory - Cardiovascular Cardiovascular Exam: Present: regular rate, normal rhythm, normal heart sounds. Absent: bradycardia, tachycardia, irregular rhythm, systolic murmur, diastolic murmur, rubs, gallop - GI/Abdominal GI/Abdominal exam: Present: soft, tenderness (Upper abdomen bilateral), normal bowel sounds. Absent: distended, guarding, rebound, rigid, diminished bowel sounds - Extremities Exam Extremities exam: Present: normal inspection, full ROM, normal capillary refill. Absent: tenderness - Back Exam Back exam: Present: normal inspection, full ROM. Absent: tenderness, CVA tenderness (R), CVA tenderness (L), muscle spasm, paraspinal tenderness, vertebral tenderness, rash noted - Neurological Exam Neurological exam: Present: alert, oriented X3, normal gait - Psychiatric Psychiatric exam: Present: normal affect, normal mood - Skin Skin exam: Present: warm, dry, intact, normal color. Absent: rash ED Course Vital Signs 06/12/22 09:52 Temperature 98.8 F Pulse Rate 78 Blood Pressure 116/83 [Left] O2 Sat by Pulse 100 Oximetry - Reevaluation(s) Reevaluation #1: 06/12/22 13:20 Patient is speaking in full sentences with no signs of distress noted. ED Medical Decision Making - Lab Data Result diagrams: 06/12/22 10:11 06/12/22 10:11 Lab Results 06/12/22 06/12/22 06/12/22 Range/Units 10:11 10:11 10:11 WBC 11.6 H (4.5-11.0) K/mm3 RBC 4.65 (3.65-5.03) M/mm3 Hgb 13.2 (10.1-14.3) gm/dl Hct 40.5 (30.3-42.9) % MCV 87 (79-97) fl MCH 28 (28-32) pg MCHC 33 (30-34) % RDW 15.3 H (13.2-15.2) % Plt Count 192 (140-440) K/mm3 Sodium 142 (137-145) mmol/L Potassium 4.6 (3.6-5.0) mmol/L Chloride 106.3 (98-107) mmol/L Carbon Dioxide 20 L (22-30) mmol/L Anion Gap 20 mmol/L BUN 6 L (7-17) mg/dL Creatinine 0.7 (0.6-1.2) mg/dL Estimated GFR > 60 ml/min BUN/Creatinine Ratio 9 % Glucose 95 (65-100) mg/dL Calcium 9.2 (8.4-10.2) mg/dL Total Bilirubin < 0.20 (0.1-1.2) mg/dL AST 14 (5-40) units/L ALT 11 (7-56) units/L Alkaline Phosphatase 70 (35-129) units/L Total Protein 6.4 (6.3-8.2) g/dL Albumin 4.3 (3.9-5) g/dL Albumin/Globulin Ratio 2.0 % Lipase 34 (13-60) units/L HCG, Qual Negative (Negative) Urine Color (Yellow) Urine Turbidity (Clear) Specific [place] (Man) (1.003-1.030) Ur Protein (Man) (Negative) mg/dL Ur Ketones (Man) (Negative) Ur Reducing Substances Urine Bilirubin (Man) (Negative) Urine WBC (Auto) (0.0-6.0) /HPF Urine RBC (Auto) (0.0-6.0) /HPF U Epithel Cells (Auto) (0-13.0) /HPF Urine RBC (Manual) (Negative) 06/12/22 Range/Units 11:08 WBC (4.5-11.0) K/mm3 RBC (3.65-5.03) M/mm3 Hgb (10.1-14.3) gm/dl Hct (30.3-42.9) % MCV (79-97) fl MCH (28-32) pg MCHC (30-34) % RDW (13.2-15.2) % Plt Count (140-440) K/mm3 Sodium (137-145) mmol/L Potassium (3.6-5.0) mmol/L Chloride (98-107) mmol/L Carbon Dioxide (22-30) mmol/L Anion Gap mmol/L BUN (7-17) mg/dL Creatinine (0.6-1.2) mg/dL Estimated GFR ml/min BUN/Creatinine Ratio % Glucose (65-100) mg/dL Calcium (8.4-10.2) mg/dL Total Bilirubin (0.1-1.2) mg/dL AST (5-40) units/L ALT (7-56) units/L Alkaline Phosphatase (35-129) units/L Total Protein (6.3-8.2) g/dL Albumin (3.9-5) g/dL Albumin/Globulin Ratio % Lipase (13-60) units/L HCG, Qual (Negative) Urine Color Straw (Yellow) Urine Turbidity Clear (Clear) Specific [place] (Man) 1.000 L (1.003-1.030) Ur Protein (Man) Negative (Negative) mg/dL Ur Ketones (Man) Negative (Negative) Ur Reducing Substances Not Reportable Urine Bilirubin (Man) Negative (Negative) Urine WBC (Auto) < 1.0 (0.0-6.0) /HPF Urine RBC (Auto) < 1.0 (0.0-6.0) /HPF U Epithel Cells (Auto) 1.0 (0-13.0) /HPF Urine RBC (Manual) 3+ (Negative) - Radiology Data [facility] [address] [place] [address] Cat Scan Report Signed Patient: SWETA GARCIA MR#: [id number] : 1985 Acct:[id number] Age/Sex: 37 / F ADM Date: 06/12/22 Loc: ED Attending Dr: Ordering Physician: JOSE QUIJANO NP Date of Service: 06/12/22 Procedure(s): CT abdomen pelvis w con Accession Number(s): [id number] cc: JOSE QUIJANO NP CT ABDOMEN AND PELVIS WITH CONTRAST INDICATION / CLINICAL INFORMATION: abd pain with n/v. TECHNIQUE: Axial CT images were obtained through the abdomen and pelvis after IV contrast. All CT scans at this location are performed using CT dose reduction for ALARA by means of automated exposure control. COMPARISON: CT dated 07/10/2021 FINDINGS: LOWER CHEST: Bibasilar atelectasis. Distal esophageal wall thickening. LIVER: Hepatic steatosis. GALLBLADDER: Cholelithiasis with a gallstone in the region of the gallbladder neck. No gallbladder distention or pericholecystic stranding/fluid. BILE DUCTS: No significant abnormality. PANCREAS: Stranding adjacent to pancreatic head, uncinate process, and neck extending into the retroperitoneum. Pancreas enhances uniformly. No peripancreatic fluid collections. SPLEEN: No significant abnormality. ADRENALS: No significant abnormality. RIGHT KIDNEY / URETER: No significant abnormality. LEFT KIDNEY / URETER: No significant abnormality. STOMACH / SMALL BOWEL: Stomach is normal. Stranding adjacent to the third and fourth portions of the duodenum. Small bowel is normal in caliber. COLON: No significant abnormality. APPENDIX: No significant abnormality. PERITONEUM: No free fluid. No free air. No fluid collection. LYMPH NODES: No significant adenopathy. AORTA / ARTERIES: No significant abnormality. IVC / VEINS: No significant abnormality. URINARY BLADDER: No significant abnormality. REPRODUCTIVE ORGANS: Physiologic left adnexal cyst. ADDITIONAL FINDINGS: None. SKELETAL SYSTEM: No significant abnormality. IMPRESSION: 1. Retroperitoneal fat stranding near the proximal pancreas and second/third portions of the duodenum, likely related to acute interstitial pancreatitis. Duodenitis is also a possibility and correlation with serum lipase is recommended. 2. Cholelithiasis without evidence of cholecystitis. 3. Hepatic steatosis and additional chronic/incidental findings detailed above. Signer Name: Phill Ambriz MD Signed: 06/12/2022 2:56 PM Workstation Name: [id number] Transcribed By: LUCAS Dictated By: PHILL AMBRIZ MD Electronically Authenticated By: PHILL AMBRIZ MD Signed Date/Time: 06/12/221455 DD/ 49 TD/TT: - Medical Decision Making This is a 37-year-old female that presents with abdominal pain with n/v. Patient is stable and was examined by me. Labs obtained. UA obtained. CT of abdomen obtained and dictated by the radiologist. Patient is notified of the report with no questions noted by the patient. Vital signs are stable prior to discharge. Patient received medical treatment in the ED which patient stated symptoms has resovled and subsided. Was instructed note to operate any machinery due to possible drowsiness and stated someone will drive the patient home. A by mouth challenge has been obtained and patient tolerated well with no nausea vomiting. Patient was also instructed to Follow-up with a primary care doctor in 3-5 days or if symptoms worsen and continue return to emergency room as soon as possible. At time of discharge, the patient does not seem toxic or ill in appearance. No acute signs of distress noted. Patient agrees to discharge treatment plan of care. No further questions noted by the patient. Critical care attestation.: If time is entered above; I have spent that time in minutes in the direct care of this critically ill patient, excluding procedure time. ED Disposition Clinical Impression: Duodenitis Abdominal pain Qualifiers: Abdominal location: upper abdomen, unspecified Qualified Code(s): R10.10 - Upper abdominal pain, unspecified Nausea & vomiting Qualifiers: Vomiting type: unspecified Qualified Code(s): R11.2 - Nausea with vomiting, unspecified Disposition: 01 HOME / SELF CARE / HOMELESS Is pt being admited?: No Does the pt Need Aspirin: No Condition: Stable Instructions: Abdominal Pain (ED), Duodenitis Additional Instructions: Follow-up with a primary care and software development coordinator doctor in 3-5 days or if symptoms worsen and continue return to emergency room as soon as possible. Prescriptions: Dicyclomine [Bentyl] 20 mg PO Q12H PRN #12 tablet PRN Reason: abdominal pain Ondansetron [Zofran Odt] 4 mg PO Q12H PRN #12 tab.rapdis PRN Reason: Nausea Referrals: PRIMARY CAREMD [Primary Care Provider] - 3-5 Days LYNDSAY POOL MD [Staff Physician] - 3-5 Days [facility] [Provider Group] - 3-5 Days Forms: Work/School Release Form(ED) Time of Disposition: 15:06
--- NOTE | 2022-06-12 15:01 | Cat Scan Report ---
CT ABDOMEN AND PELVIS WITH CONTRAST INDICATION / CLINICAL INFORMATION: abd pain with n/v. TECHNIQUE: Axial CT images were obtained through the abdomen and pelvis after IV contrast. All CT sc ans at this location are performed using CT dose reduction for ALARA by means of automated exposure c ontrol. COMPARISON: CT dated 07/10/2021 FINDINGS: LOWER CHEST: Bibasilar atelectasis. Distal esophageal wall thickening. LIVER: Hepatic steatosis. GALLBLADDER: Cholelithiasis with a gallstone in the region of the gallbladder neck. No gallbladder di stention or pericholecystic stranding/fluid. BILE DUCTS: No significant abnormality. PANCREAS: Stranding adjacent to pancreatic head, uncinate process, and neck extending into the retrop eritoneum. Pancreas enhances uniformly. No peripancreatic fluid collections. SPLEEN: No significant abnormality. ADRENALS: No significant abnormality. RIGHT KIDNEY / URETER: No significant abnormality. LEFT KIDNEY / URETER: No significant abnormality. STOMACH / SMALL BOWEL: Stomach is normal. Stranding adjacent to the third and fourth portions of the duodenum. Small bowel is normal in caliber. COLON: No significant abnormality. APPENDIX: No significant abnormality. PERITONEUM: No free fluid. No free air. No fluid collection. LYMPH NODES: No significant adenopathy. AORTA / ARTERIES: No significant abnormality. IVC / VEINS: No significant abnormality. URINARY BLADDER: No significant abnormality. REPRODUCTIVE ORGANS: Physiologic left adnexal cyst. ADDITIONAL FINDINGS: None. SKELETAL SYSTEM: No significant abnormality. IMPRESSION: 1. Retroperitoneal fat stranding near the proximal pancreas and second/third portions of the duodenum , likely related to acute interstitial pancreatitis. Duodenitis is also a possibility and correlation with serum lipase is recommended. 2. Cholelithiasis without evidence of cholecystitis. 3. Hepatic steatosis and additional chronic/incidental findings detailed above. Signer Name: Saurabh Alicia MD Signed: 06/12/2022 2:56 PM Workstation Name: [id number]
== END 2022-06-12 15:10 | disposition home or self-care (01) ==
LOC: ED 09:40
DX: K29.80 Duodenitis without bleeding (principal); I10 Essential (primary) hypertension; J45.909 Unspecified asthma, uncomplicated; F17.200 Nicotine dependence, unspecified, uncomplicated; Z98.890 Other specified postprocedural states; Z72.89 Other problems related to lifestyle; Z79.899 Other long term (current) drug therapy
CPT/HCPCS: 36415; 74177; 80053; 81001; 83690; 84703; 85027; 96361; 96374; 96375; 99284; J2270; J2405; J7030; Q9967